=== PATIENT | female | born 1965 | race Caucasian/White ===

== ENCOUNTER 2025-06-15 11:45 | Emergency (ER) | payer MEDICAID, SELFPAY ==
[2025-06-15 12:06] VITALS: BP 178/90; PULSE 107; RESP 18; TEMP 36.6; O2SAT 96; BMI 25.8
--- NOTE | 2025-06-15 13:13 | CT_ITS ---
WS: [id number] CT ABDOMEN PELVIS TECHNIQUE: Contrast-enhanced CT of the abdomen and pelvis with coronal and sagittal reformatted images. CLINICAL INFORMATION: abscess COMPARISON: None. DLP: 780.[address] scans at [facility] use at least one of these dose optimization techniques: automated exposure control; mA and/or kV adjustment per patient size (includes targeted exams where dose is matched to clinical indication); or iterative reconstruction. FINDINGS: Soft tissue induration and inflammatory stranding in the mons pubis eccentric to the LEFT extending into the LEFT labia and perineal soft tissues eccentric to the LEFT. A few tiny foci of subcutaneous air. No evidence of drainable abscess or focal fluid collection visualized. Associated skin thickening. Anal sphincter appears normal in appearance. Few reactive inguinal lymph nodes. Hepatomegaly. Fatty liver. Cholecystectomy clips. Normal portal vein and splenic vein. Fatty atrophy of the pancreas. Tiny splenule. Diffuse gastric rugal thickening in the stomach compatible with gastritis associated duodenitis. Food products in the stomach. Lung bases are well aerated. Adrenal glands are normal. Normal renal parenchymal enhancement. No hydronephrosis. Celiac and SMA are patent. Tiny fat-containing umbilical hernia. Urine distended bladder. Sigmoid diverticulosis. No evidence of acute diverticulitis. Benign-appearing calcification in the LEFT inferior adnexa. CT/CT abdomen pelvis w con* [id number] IMPRESSION: 1. No evidence of drainable abscess or fluid collection. 2. Diffuse induration with soft tissue edema involving the mons pubis eccentri c to the LEFT extending into the LEFT perineum and labia soft tissues. This ext ends to the mid perineum eccentric to the LEFT with skin thickening. A few tiny foci of subcutaneous air. 3. A few reactive inguinal lymph nodes. 4. Atrophic uterus 5. Hepatomegaly with fatty liver. 6. Prior cholecystectomy. 7. Evidence of gastritis and duodenitis. 8. No other acute findings.
--- NOTE | 2025-06-15 13:14 | ED_ITS ---
HPI - Skin/Abscess/Foreign Bdy 2 General: Chief complaint: Skin/Abscess/Foreign Body Stated complaint: lt thigh lump Time Seen by Provider: 06/15/25 13:10 Source: patient Mode of arrival: ambulatory Limitations: no limitations History of Present Illness: 60-year-old female states she had notice d to abscess to her left buttocks that since expanded into her left groin and labia. States she has had some drainage she has pain she denies any fevers denies any worsening provider states this was going on for little over a week. Associated symptoms: Deny chills, fever(s), nausea or vomiting Related Data Home Medications ?Medication ?Instructions ?Recorded ?Confirmed ibuprofen 200 mg tablet 200 mg PO Q6H PRN Pain 06/1506/15/25 omeprazole magnesium 20 mg 20 mg PO QAM 06/15/2506/15 tablet,delayed release (Prilosec OTC) Allergies Allergy/AdvReac Type Severity Reaction Status Date / Time No Known Allergies Allergy Verified 06/15/25 12:13 Review of Systems 2 Const: Denies: fever(s), chills, body aches or change in appetite Eyes: Denies: blurry vision or eye discomfort ENMT: Denies: throat pain or dental pain Card: Denies: chest pain Resp: Denies: dyspnea GI: Denies: abdominal pain, nausea, vomiting or diarrhea Musc: Denies: neck pain or back pain Skin/Breast: Denies: rash Neuro: Denies: headache(s) PFSH ED 2 PFSH: Medical History (Updated 06/15/25 @ 16:12 by Hermes Calloway MD) Restless legs syndrome Tobacco abuse Hypertension Social History (Updated 06/15/25 @ 15:11 by Xavier George MD) Smoking and tobacco/nicotine status: current every day tobacco/nicotine user cigarettes Packs smoked per day: 1 Alcohol intake: current Alcohol intake frequency: holidays/special occasions only Substance/Drug Use: never Additional social history: Not working wants full code as discussed with patient and her significant other Ed Viral on 06/15/2025 by Xavier George MD Household members: significant other Physical Exam 2 Const: COMMON NORMALS: no acute distress, patient oriented x3 and healthy appearing HENMT: COMMON NORMALS: normocephalic and atraumatic HEAD & SCALP: n ormocephalic and atraumatic Eye: COMMON NORMALS: conjunctivae normal CONJUNCTIVA: Yes conjunctivae normal Neck/C-Spine: COMMON NORMALS: full ROM Chest: COMMONS NORMALS: normal inspection of the chest Resp: COMMON NORMALS: normal respiratory effort Cardio: COMMON NORMALS: regular rate RATE: regular rate GI: COMMON NORMALS: Normal to inspection, nondistended, normoactive bowel sounds present, Soft to palpation, non-tender and no masses PALPATION: Yes Soft to palpation : OTHER: Abscess appearing to left perineum going to left labia with cellulitis very tender to touch Extremity: COMMON NORMALS: normal to inspection and full ROM Neuro: COMMON NORMALS: patient oriented x3, moves all extremities and no focal motor deficits Psych: COMMON NORMALS: mental status grossly normal, Normal thought process present and cooperative THOUGHT PROCESS: Normal thought process present Skin: COMMON NORMALS: no rashes or lesions noted and no wounds GENERAL SKIN EXAM: no rashes or lesions noted Course 2 Vital Signs: Vital signs: Vital Signs Temperature 97.8 F 06/15/25 12:06 Pulse Rate 107 H 06/15/25 12:06 Respiratory Rate 18 06/15/25 14:04 Blood Pressure 178/90 06/15/25 12:06 Pulse Oximetry 96 06/15/25 14:04 Oxygen Delivery Me thod Room Air 06/15/25 12:06 MDM - Skin/Abscess/Foreign Bdy Medicial Decision Making Patient presents for cellulitis patient was seen by her surgeon Dr. 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 ER for higher level care. Medical Records I reviewed the patient's medical records. Lab Data I reviewed the patient's lab results. 06/15/25 13:29 06/15/25 13:29 Radiology Impressions Abdomen/Pelvis CT 06/15/25 13:13 IMPRESSION: 1. No evidence of drainable abscess or fluid collection. 2. Diffuse induration with soft tissue edema involving the mons pubis eccentric to the LEFT extending into the LEFT perineum and labia soft tissues. This extends to the mid perineum eccentric to the LEFT with skin thickening. A few tiny foci of subcutaneous air. 3. A few reactive inguinal lymph nodes. 4. Atrophic uterus 5. Hepatomegaly with fatty liver. 6. Prior cholecystectomy. 7. Evidence of gastritis and duodenitis. 8. No other acute findings. Laboratory Results WBC 18.86 10^3/uL (3.29-11.43) H 06/15/25 13:29 RBC 4.97 10^6/uL (3.85-5.65) 06/15/25 13:29 Hgb 15.20 g/dL (11.27-16.99) 06/15/25 13:29 Hct 44.2 % (36-47) 06/15/25 13:29 MCV 88.9 fl (85-98) 06/15/25 13:29 MCH 30.6 pg (27-33) 06/15/25 13:29 MCHC 34.4 g/dL (30-55) 06/15/25 13:29 RDW 13.2 % (12.1-15.1) 06/15/25 13:29 Plt Count 234 10^3/cmm (157-399) 06/15/25 13:29 MPV 9.9 fL (7.4-10.4) 06/15/25 13:29 Neut % (Auto) 81.0 % 06/15/25 13:29 Lymph % (Auto) 6.8 % 06/15/25 13:29 M[place]urt[place] % (Auto) 7.1 % 06/15/25 13:29 Eos % (Auto) 0.6 % 06/15/25 13:29 Baso % (Auto) 0.7 % 06/15/25 13:29 Neut # (Auto) 15.27 10^3/uL (1.8-7.7) H 06/15/25 13:29 Lymph # (Auto) 1.3 10^3/uL (0.8-4.8) 06/15/25 13:29 [place]urt[place] # (Auto) 1.3 10^3/uL (0.2-0.9) H 06/15/25 13:29 Eos # (Auto) 0.1 10^3/uL (0.0-0.8) 06/15/25 13:29 Baso # (Auto) 0.1 10^3/uL (0.0-0.1) 06/15/25 13:29 Nucleated RBC % (auto) 0 % 06/15/25 13:29 Nucleated RBCs # 0.0 /100WBC 06/15/25 13:29 Sodium 129 mmol/L (136-145) L 06/15/25 13:29 Potassium 3.8 mmol/L (3.5-5.1) 06/15/25 13:29 Chloride 92 mmol/L (98-107) L 06/15/25 13:29 Carbon Dioxide 18 mmol/L (22-29) L 06/15/25 13:29 Anion Gap 22.8 (5-19) H 06/15/25 13:29 BUN 18 mg/dL (6-20) 06/15/25 13:29 Creatinine 0.9 mg/dL (0.5-0.9) 06/15/25 13:29 GFR Calculation 64.3 mL/min (90-130) L 06/15/25 13:29 Glucose 1041 mg/dL (65-115) H* 06/15/25 13:29 Calculated Osmolality 322 mOsm/kg (285-295) H 06/15/25 13:29 Lactic Acid 2.0 mmol/L (0.5-2.2) 06/15/25 13:29 Calcium 9.9 mg/dL (8.5-10.5) 06/15/25 13:29 Total Bilirubin 0.6 mg/dL (0.15-1.2) 06/15/25 13:29 AST 15 U/L (0-32) 06/15/25 13:29 ALT 24 U/L (0-33) 06/15/25 13:29 Alkaline Phosphatase 362 U/L (35-105) H 06/15/25 13:29 Total Protein 7.6 g/dL (6.6-8.7) 06/15/25 13:29 Albumin 3.4 g/dL (3.5-5.2) L 06/15/25 13:29 Globulin 4.2 g/dL (1.3-4.6) 06/15/25 13:29 All radiology interpretation(s) finalized by discharge Discharge Plan Discharge Patient Disposition: Xfer Short-Term Hosp Clinical Impression: Cellulitis, Hyperglycemia Condition: Stable Referrals: Marcelina Mcfadden FNP [Primary Care Provider, Family Practice] Print Language: Ugandan Coding Level of Care Code 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
[2025-06-15] MEDS: iohexol 350 mg/mL 500 mL Btl (per mL) IV (13:45)
[2025-06-15] MEDS: ondansetron 2 mg/ML SDV 2 mL 4 MG IVP (14:02)
[2025-06-15 14:04] VITALS: RESP 18; O2SAT 96
[2025-06-15] MEDS: morphine 4 mg/mL SDV 1 mL IVP (14:04)
[2025-06-15 14:05] LABS: Hematocrit 44.2 % (36-47); Hemoglobin 15.20 g/dL (11.27-16.99); Mean Corpuscular HGB Conc 34.4 g/dL (30-55); Mean Corpuscular Hemoglobin 30.6 pg (27-33); Mean Corpuscular Volume 88.9 fl (85-98); Nucleated Red Blood Cells % 0 %; Platelet Count 234 10^3/cmm (157-399); Red Blood Count 4.97 10^6/uL (3.85-5.65); White Blood Count 18.86 10^3/uL (3.29-11.43)
[2025-06-15 14:26] LABS: Alanine Aminotransferase 24 U/L (0-33); Albumin Level 3.4 g/dL (3.5-5.2); Alkaline Phosphatase 362 U/L (35-105); Anion Gap 22.8 (5-19); Aspartate Amino Transferase 15 U/L (0-32); Blood Urea Nitrogen 18 mg/dL (6-20); Calcium 9.9 mg/dL (8.5-10.5); Carbon Dioxide 18 mmol/L (22-29); Chloride 92 mmol/L (98-107); Creatinine Clr Calc Pharmacy 76.8761; Globulin 4.2 g/dL (1.3-4.6); Potassium 3.8 mmol/L (3.5-5.1); Sodium 129 mmol/L (136-145); Total Protein 7.6 g/dL (6.6-8.7)
[2025-06-15 14:36] LABS: Osmolality Calculated 322 mOsm/kg (285-295)
[2025-06-15 14:38] LABS: Glucose 1041 mg/dL (65-115)
[2025-06-15] MEDS: piperacillin-tazobactam 3.375 GM in sodium chloride 0.9% (plus) 50 ML IV (14:42)
--- NOTE | 2025-06-15 15:03 | P.CONIM_ITS ---
Providers/Reason For Consult 2 Consulting Physician/Specialty*: General Surgery Reason for Consult*: Evaluation of perineal abscess. Primary Care Provider: RICARDO Guevara History of Present Illness History of Present Illness Fadumo Jimenez is a 60 year old female with history of diabetes who presents to the hospital with a 1 week course of swelling induration and pain in the left labia and left perineum. According to the patient she started with a possible boil in the left Carlitos Noom that rapidly extended into the left labia and lower abdominal wall left to the level of the lower abdomen. The boil spontaneously drained but she has noticed significant swelling and pain and therefore decided to come to the ER. In the emergency room a CT scan was done that showed evidence of no drainable fluid collections but extensive tissue swelling in the left labia left lower abdominal wall and left perineum with some small speckles of air. Patient was being admitted to the hospitalist service for antibiotics for cellulitis I was consulted for evaluation for possible need of surgical intervention. Review of Systems 2 Narrative: 10 point review of systems done negative otherwise noted in HPI Medications/Allergies Home Medications ?Medication ?Instructions ?Recorded ?Confirmed ?Last Taken ?Type ibuprofen 200 mg tablet 200 mg PO Q6H PRN Pain 06/1506/15/25 Unknown History omeprazole magnesium 20 mg 20 mg PO QAM 06/15/2506/1506/15/25 History tablet,delayed release (Prilosec OTC) Allergies Allergy/AdvReac Type Severity Reaction Status Date / Time No Known Allergies Allergy Verified 06/15/25 12:13 Current Medications Generic Name Dose Route Start Last Admin Trade Name Freq PRN Reason Stop Dose Admin Sodium Chloride 1,000 mls @ 999 mls/hr 06/15/25 14:12 06/15/25 14:43 Sodium Chloride 0.9% IV 06/15/25 15:12 999 mls/hr .Q1H1M ONE Administration PFSH Acute 2 PFSH: Social History Smoking and tobacco/nicotine status: current every day tobacco/nicotine user cigarettes Packs smoked per day: 1 Alcohol intake: current Alcohol intake frequency: holidays/special occasions only Substance/Drug Use: never Additional social history: Not working wants full code as discussed with patient and her significant other Ed Viral on 06/15/2025 by Xavier George MD Household members: significant other Vitals/I&O/Wt Last Vital Signs Temp 97.8 F 06/15/25 12:06 Pulse 107 H 06/15/25 12:06 Resp 18 06/15/25 14:04 BP 178/90 06/15/25 12:06 Pulse Ox 96 06/15/25 14:04 O2 Del Method Room Air 06/15/25 12:06 Weight last 48 hrs Weight 175 lb Physical Exam 2 Narrative: On the examination of the lower abdomen perineum and left labia there is significant swelling affecting the left lower abdomen from the level of the left lower abdominal pannus to the pubis and infiltrating all the left labia tracking down to the perineum. There is erythema at the level of the lower abdomen and once it gets into the pubis on the left labial region there is some mottling of the skin with some superficial necrotic blisters noted. At the level of the perineum there is a 2 cm wound with necrotic material and exudate. The lower abdomen is extremely tender the area on top of the left labia and perineum has decreased tenderness and sensation. 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 Patient presents to the emergency department with perineal left labial and left lower abdominal wall infection. She has a elevated white count of 18.8 has a sodium of 129 and a heart rate of 107. No fever during this admission. Her hemoglobin level is normal the glucose is 1000. 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 Patient most likely will require extensive debridement of the perineum, labia and lower abdominal wall. I cannot offer surgical intervention in our facility as patient most likely will require extensive debridement and possible coverage of the lower abdominal wall and left labia. In this setting I will recommend transfer to higher level of care for multidisciplinary team evaluation as patient most likely will require assistance by general surgery, [facility] and plastic surgery during hospital stay as well as critical care availability. Patient is currently is stable there is no contraindications for transfer. The case was discussed with medical team and they agree with assessment. I have discussed with the patient informed her of the findings. I have also informed the patient of the findings and possible prognosis, she agrees with the plan. We should start patient of broad-spectrum antibiotics, start IV fluids and intensive glucose management. All other care per primary team PDMP PDMP Reviewed: Not Reviewed Coding Level of Care Code Acute Code for [facility] Fwd Diagnoses Catalina disease of vagina and vulva N76.82
--- NOTE | 2025-06-15 15:06 | PM.CONSULT ---
Providers/Reason For Consult Consulting Physician/Specialty*: Xavier George MD hospitalist Reason for Consult*: Cellulitis Requesting Physician: Hermes Calloway MD Primary Care Provider: RICARDO Guevara History of Present Illness History of Present Illness Fadumo Jimenez is a 60 year old female comes in with 1 week of infection left groin. She states it started around the anus then moved anteriorly up the left labia and now she has tenderness in the suprapubic mons area. She has not measured her temperature but has a fever blister so subjectively think she has had a fever. She is companied by her significant other at [employer] Patient denies injury to this area or shaving injury or ingrown hair. She denies past skin infection or history of MRSA. She has not had diabetes. She states she does not follow closely with physicians and her blood pressure has been high i.e. 200s systolic chronically but she does not treat it because of the cost of medication Tobacco is 1 pack/day alcohol is rare i.e. she had 2 beers on Super Bowl as the last time no drug use. 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 States her significant other does most of the cooking Allergies NKDA Meds omeprazole and ibuprofen Patient wants full CODE STATUS Past surgical history gallbladder was removed in her age 20s appendectomy age 17 Review of Systems Narrative: General does not check blood sugars but did know she had diabetes weight up and down 5 pounds depending on how much she eats Cardiovascular no chest pain positive for palpitation no edema Respiratory no shortness of breath cough wheezing GI no nausea vomiting diarrhea constipation no dysuria hematuria. Last UTI 30 years ago [employer] no vaginal bleeding or discharge since menopause at age 47 Medications/Allergies Home Medications ?Medication ?Instructions ?Recorded ?Confirmed ?Last Taken ?Type ibuprofen 200 mg tablet 200 mg PO Q6H PRN Pain 06/15/25 06/15/25 Unknown History omeprazole magnesium 20 mg 20 mg PO QAM 06/15/25 06/15/25 06/15/25 History tablet,delayed release (Prilosec OTC) Allergies Allergy/AdvReac Type Severity Reaction Status Date / Time No Known Allergies Allergy Verified 06/15/25 12:13 Current Medications Generic Name Dose Route Start Last Admin Trade Name Freq PRN Reason Stop Dose Admin Sodium Chloride 1,000 mls @ 999 mls/hr 06/15/25 14:12 06/15/25 14:43 Sodium Chloride 0.9% IV 06/15/25 15:12 999 mls/hr .Q1H1M ONE Administration PFSH Acute PFSH: Medical History (Updated 06/15/25 @ 15:15 by Xavier George MD) Restless legs syndrome Tobacco abuse Hypertension Social History (Updated 06/15/25 @ 15:11 by Xavier George MD) Smoking and tobacco/nicotine status: current every day tobacco/nicotine user cigarettes Packs smoked per day: 1 Alcohol intake: current Alcohol intake frequency: holidays/special occasions only Substance/Drug Use: never Additional social history: Not working wants full code as discussed with patient and her significant other Ed Viral on 06/15/2025 by Xavier George MD Household members: significant other Vitals/I&O/Wt Last Vital Signs Temp 97.8 F 06/15/25 12:06 Pulse 107 H 06/15/25 12:06 Resp 18 06/15/25 14:04 BP 178/90 06/15/25 12:06 Pulse Ox 96 06/15/25 14:04 O2 Del Method Room Air 06/15/25 12:06 Weight last 48 hrs Weight 79.379 kg Physical Exam Narrative: General well-developed well-nourished female in no acute cardiopulmonary distress CV regular rate and rhythm Lungs clear to auscultation bilaterally Abdomen positive bowel tones soft nontender she does have suprapubic tenderness and discoloration with some skin blisters in the suprapubic and left labia. Left labia with large slit in the labia evidence of spontaneous abscess drained and there is a skin tag that it is quarter inch thick and inch and a half long which looks like skin and tissue that sloughed from this abscess drainage. 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 Navarro did a stat consult on patient and suspects early Salvador's gangrene and recommends transfer patient to a higher level of care with [employer] surgery and plastics. He thinks extensive debridement will be likely needed 2. Diabetes: Blood sugar 1041 and previously undiagnosed diabetes. Patient was told that she has diabetes and will need to be treated 3. Hypertension: Patient with blood pressure running chronically systolics as high as 200. She is counseled that this cause vascular disease and left ventricular hypertrophy and eventually heart failure and heart attack. She is counseled that she will need to treat this and she voiced understanding but just needed medications it is not too expensive 4. Tobacco abuse: Will need additional counseling for smoking cessation 5. Restless legs syndrome: Patient has been on ropinirole in the past which was affordable but not on it currently. She states 3 hours of restless legs daily could be anytime of the day. I discussed low-dose ropinirole as well as gabapentin for restless legs. Plan: Patient is transferring to a higher level of care Case was discussed with Dr. Naavrro as well as Dr. Calloway PDMP PDMP Reviewed: Not Reviewed Coding Level of Care Code 88860 Diagnoses Salvador disease of vagina and vulva N76.82 Diabetes E11.9 Hypertension I10 Tobacco abuse Z72.0 Restless legs syndrome G25.81 Time Spent (min) 55
[2025-06-15 15:27] LABS: Lactic Sepsis W/Reflex 2.0 mmol/L (0.5-2.2)
[2025-06-15 15:42] VITALS: BP 172/97; PULSE 96; O2SAT 93
[2025-06-15] MEDS: insulin regular-human 100 units/1 mL 12 UNIT IVP (15:43)
[2025-06-15 16:42] VITALS: BP 181/92; PULSE 105; O2SAT 94
[2025-06-15 17:12] VITALS: BP 178/110; PULSE 107; O2SAT 92
[2025-06-15] MEDS: potassium phosphate (mEq K) 40 MEQ in sodium chloride 0.9% (100 ml) 100 ML 27.25 MEQ IV (17:40)
== END 2025-06-15 17:39 | disposition short-term general hospital (02) ==
PROVIDERS: Emergency Provider Emergency Medicine; PCP Nurse Practitioner
DX: L03.317 Cellulitis of buttock (principal); F17.210 Nicotine dependence, cigarettes, uncomplicated; I10 Essential (primary) hypertension; R73.9 Hyperglycemia, unspecified
CPT/HCPCS: 36415; 36416; 74177; 80053; 82962; 83605; 85025; 87040; 96365; 96367; 96375; 99285; J1815; J2270; J2405; J2543; J3373; J3490; J7030; J7050; J9999

== ENCOUNTER → 2025-08-09 11:42 | Outpatient (BNVA) | payer MEDICAID, SELFPAY | PROVIDERS: PCP Family Medicine; Visit Provider Family Medicine | DX: E11.9 Type 2 diabetes mellitus without complications (principal); E03.9 Hypothyroidism, unspecified | CPT/HCPCS: 80053; 80061; 82043; 83036; 84439; 84443; 85025 ==

== ENCOUNTER 2025-09-13 14:36 | Emergency (ER) | payer MEDICAID, SELFPAY ==
[2025-09-13 14:38] VITALS: BP 128/73; PULSE 86; RESP 18; TEMP 36.7; O2SAT 97
[2025-09-13 15:35] LABS: Hematocrit 45.0 % (36-47); Hemoglobin 14.80 g/dL (11.27-16.99); Mean Corpuscular HGB Conc 32.9 g/dL (30-55); Mean Corpuscular Hemoglobin 28.4 pg (27-33); Mean Corpuscular Volume 86.4 fl (85-98); Nucleated Red Blood Cells % 0 %; Platelet Count 236 10^3/cmm (157-399); Red Blood Count 5.21 10^6/uL (3.85-5.65); White Blood Count 12.62 10^3/uL (3.29-11.43)
[2025-09-13 15:56] LABS: Alanine Aminotransferase 24 U/L (0-33); Albumin Level 4.5 g/dL (3.5-5.2); Alkaline Phosphatase 142 U/L (35-105); Anion Gap 18.8 (5-19); Aspartate Amino Transferase 27 U/L (0-32); Blood Urea Nitrogen 14 mg/dL (6-20); Calcium 10.0 mg/dL (8.5-10.5); Carbon Dioxide 24 mmol/L (22-29); Chloride 100 mmol/L (98-107); Creatinine Clr Calc Pharmacy 84.2900; Globulin 3.8 g/dL (1.3-4.6); Glucose 124 mg/dL (65-115); Lipase 23 U/L (13-60); Osmolality Calculated 290 mOsm/kg (285-295); Potassium 3.8 mmol/L (3.5-5.1); Sodium 139 mmol/L (136-145); Total Protein 8.3 g/dL (6.6-8.7)
[2025-09-13 15:57] LABS: Lactic Sepsis W/Reflex 1.7 mmol/L (0.5-2.2)
--- OUTSIDE RECORDS SUMMARY | 2025-09-13 16:33 | XMS_ITS | Encounter Summary ---
Author Organization [employer] Address [address] [place] [address] Care Team Providers Care Employee Benefits Coordinator Name Role Phone Unavailable Primary Care Provider Unavailabl e Encounter Details Date Type Department Care Team (Late st Contact Info) Description 06/24/2025 Lab Requisition [facility] [address] [address] [place] [place] [address] Pete Kaplan, DO [address] [place] [address] Social History Tobacco Use Types Packs/Day Years Used Date Smoking Tobacco: Every Day Cigarettes 1 42.3 Started: 05/1983 Passive Smoke Exposure: Current Comments:PT states she at ti mes she feels ready to quit but now she does not have desire to quit. Alcohol Use Standard Drinks/Week Comments Never 0 (1 standard drink = 0.6 oz pur e alcohol) Feeling Safe Answer Date Recorded Do you worry about feeling s afe and happy with the people in your life? No 06/16/2025 Food Insecurity Answer Date Recorded Do you find you are eating l ess than you should because you can t pay for food? No 06/16/2025 Transportation Needs Answer Date Record ed Have you gone without health care because you didn t have a way to get there? 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 No 2024 Housing Stability Answer Date Recorded Do you worry you won t have a steady place to sleep or struggle to pay rent or mortgage? No 06/16/2025 Utility Needs Answer Date Recorded Do you have difficulty payin g for utility costs (electric, water or gas bills)? No 06/16/2025 Medication Needs Answer Date Recorded Have you skipped taking medi cation due to cost or worry you can t afford new medications? No 06/16/2025 Feeling Safe Answer Date Recorded Are you in a relationship wi th someone who hurts you emotionally and/or physically? No 06/16/2025 Food Insecurity Answer Date Recorded Patient needs follow up regardin 06/16/2025 Transportation Needs Answer Date Record ed Patient needs follow up regardin 06/16/2025 Utility Needs Answer Date Recorded Patient needs follow up regardin 06/16/2025 Comments Unknown Sex and Gender Information Value Date Recorded Sex Assigned at Not on file Legal Sex Female 7:29 PM CDT Gender Identity Not on file Sexual Orientation Not on file documented as of this encounter Plan of Treatment Not on file documented as of this encounter Procedures Procedure Name Priority Date/Time Associated Diagnosis Comments T4 FREE Stat 06/24/2025 9:40 AM CDT documented in this encounter Results * (ABNORMAL) T4 FREE (06/24/2025 9:40 AM CDT) T4 FREE 0.64(L) 0.81 - 1.70 ng/dL 06/24/2025 11:33 AM CDT [facility] [employer] [facility] Blood Collection / Unknown 06/24/2025 9:40 AM CDT 06/24/2025 10:39 AM CDT us Pete Kaplan DO CHEMISTRY ORDERABLES Final R esult [facility] CLIA # [id number] [address] [place] [id number] documented in this encounter Visit Diagnoses Not on filedocumented in this encounter
--- OUTSIDE RECORDS SUMMARY | 2025-09-13 16:33 | XMS_ITS | Encounter Summary ---
Author Organization [employer] Address [address] [place] [address] Care Team Providers Care Telegraphic Typewriter Installer Name Role Phone Unavailable Primary Care Provider Unavailabl e Encounter Details Date Type Department Care Team (Late st Contact Info) Description 07/07/2025 Lab Requisition [facility] Laboratory Services [address] 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 No 2024 Housing Stability Answer [...] Procedure Name Priority Date/Time Associated Diagnosis Comments CBC WITH DIFFERENTIAL Routine 07/07/2025 3:35 AM CDT COMPREHENSIVE METABOLIC PANEL Routine 07/07/2025 3:35 AM CDT documented in this encounter Results * (ABNORMAL) CBC WITH DIFFERENTIAL (07/07/2025 3:35 AM CDT) WBC 9.6 4.8 - 10.8 K/uL 07/07/2025 7:00 AM CDT [facility] RBC 4.31 4.20 - 5.40 M/uL 07/07/2025 7:00 AM CDT [facility] HEMOGLOBIN 12.7 12.0 - 16.0 g/dL 07/07/2025 7:00 AM CDT [facility] HEMATOCRIT 39.5 36.0 - 46.0 % 07/07/2025 7:00 AM CDT [facility] MCV 91.6 84.0 - 103.0 fL 07/07/2025 7:00 AM CDT [facility] MCH 29.5 27.0 - 34.0 pg 07/07/2025 7:00 AM CDT [facility] MCHC 32.2 30.0 - 35.0 g/dL 07/07/2025 7:00 AM CDT [facility] PLATELETS 336 140 - 440 K/uL 07/07/2025 7:00 AM [facility] AIM [facility] MPV 9.3 8.9 - 12.8 fL 07/07/2025 7:00 AM [facility] RDW 13.7 11.0 - 14.5 % 07/07/2025 7:00 AM [facility] RDW-STDEV 46.0 37.0 - 54.0 fL 07/07/2025 7:00 AM [facility] NEUTROPHILS 42 42 - 75 % 07/07/2025 7:00 AM [facility] AIM [facility] LYMPHOCYTES 37 24 - 44 % 07/07/2025 7:00 AM [facility] AIM [facility] MONOCYTES 9 2 - 10 % 07/07/2025 7:00 AM [facility] AIM [facility] EOSINOPHILS 10(H) 0 - 7 % 07/07/2025 7:00 AM [facility] BASOPHILS 1 0 - 1 % 07/07/2025 7:00 AM [facility] IMMATURE GRANULOCYTES 1 0 - 2 % 07/07/2025 7:00 AM [facility] NEUTROPHIL ABSOLUTE 4.01 2.00 - 8.00 K/uL 07/07/2025 7:00 AM [facility] LYMPHOCYTE ABSOLUTE 3.52 1.20 - 4.00 K/uL 07/07/2025 7:00 AM [facility] MONOCYTE ABSOLUTE 0.86(H) 0.10 - 0.60 K/uL 07/07/2025 7:00 AM [facility] EOSINOPHIL ABSOLUTE 0.95(H) 0.00 - 0.70 K/uL 07/07/2025 7:00 AM [facility] BASOPHILS ABSOLUTE 0.11 0.00 - 0.20 K/uL 07/07/2025 7:00 AM [facility] IMMATURE GRANULOCYTES ABSOLUTE 0.13(H) 0.00 - 0.10 K/uL 07/07/2025 7:00 AM [facility] SMEAR REVIEWED: NA - Not Applicable 07/07/2025 7:00 AM CDT [facility] Blood Collection / Unknown 07/07/2025 3:35 AM CDT 07/07/2025 6:54 AM CDT Pete Kaplan DO HEMATOLOGY ORDERABLES Final Result [facility] CLIA # [id number] [facility] [address] [place] [address] * (ABNORMAL) COMPREHENSIVE METABOLIC PANEL (07/07/2025 3:35 AM CDT) SODIUM 138 136 - 145 mmol/L 07/07/2025 7:41 AM T [facility] POTASSIUM 4.3 3.5 - 5.1 mmol/L 07/07/2025 7:41 AM [facility] CHLORIDE 103 98 - 107 mmol/L 07/07/2025 7:41 AM T [facility] CO2 21(L) 22 - 29 mmol/L 07/07/2025 7:41 AM [facility] CALCIUM 9.7 8.6 - 10.0 mg/dL 07/07/2025 7:41 AM [facility] BUN 20 6 - 20 mg/dL 07/07/2025 7:41 AM [facility] CREATININE 0.76 0.51 - 0.95 mg/dL 07/07/2025 7:41 AM T [facility] GLUCOSE 129(H) 74 - 99 mg/dL 07/07/2025 7:41 AM T [facility] TOTAL PROTEIN 7.4 6.4 - 8.3 g/dL 07/07/2025 7:41 AM [facility] ALBUMIN 3.4(L) 3.5 - 5.2 g/dL 07/07/2025 7:41 AM [facility] BILIRUBIN TOTAL <0.2 0.0 - 1.0 mg/dL 07/07/2025 7:41 AM T [facility] ALKALINE PHOSPHATASE 138(H) 35 - 104 U/L 07/07/2025 7:41 AM [facility] AST 27 10 - 35 U/L 07/07/2025 7:41 AM T [facility] ALT 14 <=35 U/L 07/07/2025 7:41 AM T [facility] GFR >60 >=60 mL/min/1.7 3 sq meter 07/07/2025 7:41 AM T [facility] Comment:eGFR calculated with 2020 CKD-EPI equation. Vegetarian diet, extremely high or low muscle mass, and may affect results. Cystatin C with Glomerular Filtration Rate is a suitable alternative for these patients. ANION GAP 14 9 - 20 mmol/L 07/07/2025 7:41 AM [facility] Blood Collection / Unknown 07/07/2025 3:35 AM CDT 07/07/2025 6:54 AM CDT us Pete Kaplan DO CHEMISTRY ORDERABLES Final R esult [facility] CLIA # [id number] [address] [place] [address] [id number] documented in this encounter Visit Diagnoses Not on filedocumented in this encounter
--- OUTSIDE RECORDS SUMMARY | 2025-09-13 16:33 | XMS_ITS | Encounter Summary ---
Author Organization [employer] Address [address] [place] [address] Care Team Providers Care Database Consultant Name Role Phone Unavailable Primary Care Provider Unavailabl e Encounter Details Date Type Department Care Team (Late st Contact Info) Description 07/25/2025 Lab Requisition [facility] Laboratory Services [address] 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 No 2024 Housing Stability Answer [...] Associated Diagnosis Comments CBC WITH DIFFERENTIAL Routine 07/25/2025 3:50 AM CDT SEDIMENTATION RATE Routine 07/25/2025 3: 50 AM CDT C-REACTIVE PROTEIN Routine 07/25/2025 3: 50 AM CDT COMPREHENSIVE METABOLIC PANEL Routine 07/25/2025 3:50 AM CDT documented in this encounter Results * (ABNORMAL) SEDIMENTATION RATE (07/25/2025 3:50 AM CDT) ESR (SEDIMENTATION RATE) 39(H) 0 - 20 mm/Hr 07/25/2025 7:03 AM CDT [facility] Blood Collection / Unknown 07/25/2025 3:50 AM CDT 07/25/2025 6:34 AM CDT us La Kaufman MD HEMATOLOGY ORDERABLES Helene feldman Result [facility] CLIA # [id number] [address] [address] * (ABNORMAL) C-REACTIVE PROTEIN (07/25/2025 3:50 AM CDT) Pathologist [facility] CRP 5.8(H) 0.0 - 5.0 mg/L 07/25/2025 7:12 AM CDT [facility] Blood Collection / Unknown 07/25/2025 3:50 AM CDT 07/25/2025 6:34 AM CDT La Kaufman MD CHEMISTRY ORDERABLES Final Result [facility] CLIA # [id number] [address] [place] [address] * (ABNORMAL) CBC WITH DIFFERENTIAL (07/25/2025 3:50 AM CDT) Pathologist [facility] WBC 8.7 4.8 - 10.8 K/uL 07/25/2025 6:38 AM CDT [facility] RBC 4.36 4.20 - 5.40 M/uL 07/25/2025 6:38 AM CDT [facility] HEMOGLOBIN 12.7 12.0 - 16.0 g/dL 07/25/2025 6:38 AM CDT [facility] HEMATOCRIT 38.3 36.0 - 46.0 % 07/25/2025 6:38 AM CDT [facility] MCV 87.8 84.0 - 103.0 fL 07/25/2025 6:38 AM CDT [facility] MCH 29.1 27.0 - 34.0 pg 07/25/2025 6:38 AM CDT [facility] MCHC 33.2 30.0 - 35.0 g/dL 07/25/2025 6:38 AM CDT [facility] PLATELETS 251 140 - 440 K/uL 07/25/2025 6:38 AM CDT [facility] MPV 9.7 8.9 - 12.8 fL 07/25/2025 6:38 AM CDT [facility] RDW 13.0 11.0 - 14.5 % 07/25/2025 6:38 AM T [facility] RDW-STDEV 41.8 37.0 - 54.0 fL 07/25/2025 6:38 AM T [facility] NEUTROPHILS 38(L) 42 - 75 % 07/25/2025 6:38 AM T [facility] LYMPHOCYTES 45(H) 24 - 44 % 07/25/2025 6:38 AM T [facility] MONOCYTES 8 2 - 10 % 07/25/2025 6:38 AM [facility] EOSINOPHILS 8(H) 0 - 7 % 07/25/2025 6:38 AM T [facility] BASOPHILS 1 0 - 1 % 07/25/2025 6:38 AM [facility] IMMATURE GRANULOCYTES 1 0 - 2 % 07/25/2025 6:38 AM [facility] NEUTROPHIL ABSOLUTE 3.31 2.00 - 8.00 K/uL 07/25/2025 6:38 AM T [facility] LYMPHOCYTE ABSOLUTE 3.92 1.20 - 4.00 K/uL 07/25/2025 6:38 AM [facility] MONOCYTE ABSOLUTE 0.68(H) 0.10 - 0.60 K/uL 07/25/2025 6:38 AM [facility] EOSINOPHIL ABSOLUTE 0.65 0.00 - 0.70 K/uL 07/25/2025 6:38 AM [facility] BASOPHILS ABSOLUTE 0.07 0.00 - 0.20 K/uL 07/25/2025 6:38 AM [facility] IMMATURE GRANULOCYTES ABSOLUTE 0.04 0.00 - 0.10 K/uL 07/25/2025 6:38 AM [facility] SMEAR REVIEWED: NA - Not Applicable 07/25/2025 6:38 AM [facility] Blood Collection / Unknown 07/25/2025 3:50 AM CDT 07/25/2025 6:34 AM CDT La Kaufman MD HEMATOLOGY ORDERABLES Helene francia Result [facility] [place] # [id number] [facility] [address] [place] [address] * (ABNORMAL) COMPREHENSIVE METABOLIC PANEL (07/25/2025 3:50 AM CDT) Pathologist [facility] SODIUM 140 136 - 145 mmol/L 07/25/2025 7:16 AM CDT [facility] POTASSIUM 4.2 3.5 - 5.1 mmol/L 07/25/2025 7:16 AM T [facility] CHLORIDE 100 98 - 107 mmol/L 07/25/2025 7:16 AM T [facility] CO2 23 22 - 29 mmol/L 07/25/2025 7:16 AM T [facility] CALCIUM 9.5 8.6 - 10.0 mg/dL 07/25/2025 7:16 AM T [facility] BUN 27(H) 6 - 20 mg/dL 07/25/2025 7:16 AM T [facility] CREATININE 0.83 0.51 - 0.95 mg/dL 07/25/2025 7:16 AM T [facility] GLUCOSE 106(H) 74 - 99 mg/dL 07/25/2025 7:16 AM T [facility] TOTAL PROTEIN 7.1 6.4 - 8.3 g/dL 07/25/2025 7:16 AM T [facility] ALBUMIN 3.7 3.5 - 5.2 g/dL 07/25/2025 7:16 AM [facility] BILIRUBIN TOTAL 0.2 0.0 - 1.0 mg/dL 07/25/2025 7:16 AM T [facility] ALKALINE PHOSPHATASE 88 35 - 104 U/L 07/25/2025 7:16 AM T [facility] AST 27 10 - 35 U/L 07/25/2025 7:16 AM CDT [facility] Comment:Hemolysis present. R esult may be falsely elevated. ALT 22 <=35 U/L 07/25/2025 7:16 AM CDT [facility] GFR >60 >=60 mL/min/1.7 3 sq meter 07/25/2025 7:16 AM T [facility] Comment:eGFR calculated with 2020 CKD-EPI equation. Vegetarian diet, extremely high or low muscle mass, and may affect results. Cystatin C with Glomerular Filtration Rate is a suitable alternative for these patients. ANION GAP 17 9 - 20 mmol/L 07/25/2025 7:16 AM T [facility] Blood Collection / Unknown 07/25/2025 3:50 AM CDT 07/25/2025 6:34 AM CDT La Kaufman MD CHEMISTRY ORDERABLES Final Result [facility] CLIA # [id number] [address] [address] documented in this encounter Visit Diagnoses Not on filedocumented in this encounter
--- OUTSIDE RECORDS SUMMARY | 2025-09-13 16:33 | XMS_ITS | Encounter Summary ---
Author Organization [employer] Address [address] [place] [address] Care Team Providers Care Bean Dumper Name Role Phone Unavailable Primary Care Provider Unavailabl e Encounter Details Date Type Department Care Team (Late st Contact Info) Description 06/24/2025 Lab Requisition [facility] Laboratory Services [address] 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 No 2024 Housing Stability Answer [...] Associated Diagnosis Comments CBC WITH DIFFERENTIAL Routine 06/24/2025 3:39 AM CDT SEDIMENTATION RATE Routine 06/24/2025 3: 39 AM CDT C-REACTIVE PROTEIN Routine 06/24/2025 3: 39 AM CDT CK Routine 06/24/2025 3:39 AM CDT COMPREHENSIVE METABOLIC PANEL Routine 06/24/2025 3:39 AM CDT documented in this encounter Results * (ABNORMAL) SEDIMENTATION RATE (06/24/2025 3:39 AM CDT) ESR (SEDIMENTATION RATE) 90(H) 0 - 20 mm/Hr 06/24/2025 6:59 AM CDT [facility] Blood Collection / Unknown 06/24/2025 3:39 AM CDT 06/24/2025 5:33 AM CDT us Pete Kaplan DO HEMATOLOGY ORDERABLES Final Result [facility] CLIA # [id number] [address] [place] [address] * (ABNORMAL) CBC WITH DIFFERENTIAL (06/24/2025 3:39 AM CDT) [facility] WBC 13.8(H) 4.8 - 10.8 K/uL 06/24/2025 5:50 AM CDT [facility] RBC 3.30(L) 4.20 - 5.40 M/uL 06/24/2025 5:50 AM CDT [facility] HEMOGLOBIN 9.8(L) 12.0 - 16.0 g/dL 06/24/2025 5:50 AM CDT [facility] HEMATOCRIT 29.9(L) 36.0 - 46.0 % 06/24/2025 5:50 AM CDT [facility] MCV 90.6 84.0 - 103.0 fL 06/24/2025 5:50 AM CDT [facility] MCH 29.7 27.0 - 34.0 pg 06/24/2025 5:50 AM CDT [facility] MCHC 32.8 30.0 - 35.0 g/dL 06/24/2025 5:50 AM [facility] 311 140 - 440 K/uL 06/24/2025 5:50 AM [facility] MPV 10.0 8.9 - 12.8 fL 06/24/2025 5:50 AM CDT [facility] RDW 13.7 11.0 - 14.5 % 06/24/2025 5:50 AM CDT [facility] RDW-STDEV 44.6 37.0 - 54.0 fL 06/24/2025 5:50 AM CDT [facility] NEUTROPHILS 58 42 - 75 % 06/24/2025 5:50 AM CDT [facility] LYMPHOCYTES 25 24 - 44 % 06/24/2025 5:50 AM CDT [facility] MONOCYTES 11(H) 2 - 10 % 06/24/2025 5:50 AM CDT [facility] EOSINOPHILS 3 0 - 7 % 06/24/2025 5:50 AM CDT [facility] BASOPHILS 1 0 - 1 % 06/24/2025 5:50 AM CDT [facility] IMMATURE GRANULOCYTES 3(H) 0 - 2 % 06/24/2025 5:50 AM CDT [facility] NEUTROPHIL ABSOLUTE 7.99 2.00 - 8.00 K/uL 06/24/2025 5:50 AM CDT [facility] LYMPHOCYTE ABSOLUTE 3.43 1.20 - 4.00 K/uL 06/24/2025 5:50 AM CDT [facility] MONOCYTE ABSOLUTE 1.52(H) 0.10 - 0.60 K/uL 06/24/2025 5:50 AM CDT [facility] EOSINOPHIL ABSOLUTE 0.37 0.00 - 0.70 K/uL 06/24/2025 5:50 AM CDT [facility] BASOPHILS ABSOLUTE 0.08 0.00 - 0.20 K/uL 06/24/2025 5:50 AM CDT [facility] IMMATURE GRANULOCYTES ABSOLUTE 0.44(H) 0.00 - 0.10 K/uL 06/24/2025 5:50 AM CDT [facility] SMEAR REVIEWED: NA - Not Applicable 06/24/2025 5:50 AM T [facility] Blood Collection / Unknown 06/24/2025 3:39 AM CDT 06/24/2025 5:33 AM CDT Pete Kaplan DO HEMATOLOGY ORDERABLES Final Result [facility] CLIA # [id number] [address] [place] [id number] * (ABNORMAL) C-REACTIVE PROTEIN (06/24/2025 3:39 AM CDT) [facility] CRP 93.0(H) 0.0 - 5.0 mg/L 06/24/2025 6:52 AM CDT [facility] Blood Collection / Unknown 06/24/2025 3:39 AM CDT 06/24/2025 5:33 AM CDT Pete Kaplan DO CHEMISTRY ORDERABLES Final R esult Performing Organization Address City/[facility] [address]/ZIP Co de Phone Number [facility] CLIA # [id number] [address] [address] * CK (06/24/2025 3:39 AM CDT) Pathologist [facility] CK 51 26 - 192 U/L 06/24/2025 6:52 AM CDT [facility] Blood Collection / Unknown 06/24/2025 3:39 AM CDT 06/24/2025 5:33 AM CDT Pete Kaplan DO CHEMISTRY ORDERABLES Final R [facility] Performing Organization Address City/[facility] [address]/[facility] Co de Phone Number [facility] [employer] [facility] CLIA # [id number] [address] [address] * (ABNORMAL) COMPREHENSIVE METABOLIC PANEL (06/24/2025 3:39 AM CDT) SODIUM 136 136 - 145 mmol/L 06/24/2025 6:52 AM CDT [facility] POTASSIUM 3.4(L) 3.5 - 5.1 mmol/L 06/24/2025 6:52 AM CDT [facility] CHLORIDE 105 98 - 107 mmol/L 06/24/2025 6:52 AM CDT [facility] CO2 21(L) 22 - 29 mmol/L 06/24/2025 6:52 AM CDT [facility] CALCIUM 8.0(L) 8.6 - 10.0 mg/dL 06/24/2025 6:52 AM CDT [facility] BUN 14 6 - 20 mg/dL 06/24/2025 6:52 AM [facility] CREATININE 0.67 0.51 - 0.95 mg/dL 06/24/2025 6:52 AM [facility] GLUCOSE 180(H) 74 - 99 mg/dL 06/24/2025 6:52 AM [facility] TOTAL PROTEIN 5.7(L) 6.4 - 8.3 g/dL 06/24/2025 6:52 AM [facility] ALBUMIN 2.6(L) 3.5 - 5.2 g/dL 06/24/2025 6:52 AM [facility] BILIRUBIN TOTAL 0.2 0.0 - 1.0 mg/dL 06/24/2025 6:52 AM [facility] ALKALINE PHOSPHATASE 233(H) 35 - 104 U/L 06/24/2025 6:52 AM [facility] AST 24 10 - 35 U/L 06/24/2025 6:52 AM [facility] ALT 21 <=35 U/L 06/24/2025 6:52 AM [facility] GFR >60 >=60 mL/min/1.7 3 sq meter 06/24/2025 6:52 AM [facility] Comment:eGFR calculated with 2020 CKD-EPI equation. Vegetarian diet, extremely high or low muscle mass, and may affect results. Cystatin C with Glomerular Filtration Rate is a suitable alternative for these patients. ANION GAP 10 9 - 20 mmol/L 06/24/2025 6:52 AM [facility] Blood Collection / Unknown 06/24/2025 3:39 AM CDT 06/24/2025 5:33 AM CDT us Pete Kaplan DO CHEMISTRY ORDERABLES Final R esult [facility] CLIA # [id number] [address] [place] [address] documented in this encounter Visit Diagnoses Not on filedocumented in this encounter
--- OUTSIDE RECORDS SUMMARY | 2025-09-13 16:33 | XMS_ITS | Encounter Summary ---
Author Organization [employer] Address [address] [place] [address] Care Team Providers Care Space Engineer Name Role Phone Unavailable Primary Care Provider Unavailabl e Encounter Details Date Type Department Care Team (Late st Contact Info) Description 07/18/2025 Lab Requisition [facility] Laboratory Services [address] [place] [address] [facility], External Provider [address] [place], [place] [address] Social History Tobacco Use Types Packs/Day Years [...] about transportation for future doctor visits, picking supervisor medication, etc.? No 2024 Housing [...] Associated Diagnosis Comments CBC WITH DIFFERENTIAL Routine 07/18/2025 3:30 AM CDT SEDIMENTATION RATE Routine 07/18/2025 3: 30 AM CDT C-REACTIVE PROTEIN Routine 07/18/2025 3: 30 AM CDT COMPREHENSIVE METABOLIC PANEL Routine 07/18/2025 3:30 AM CDT documented in this encounter Results * (ABNORMAL) SEDIMENTATION RATE (07/18/2025 3:30 AM CDT) [facility] ESR (SEDIMENTATION RATE) 56(H) 0 - 20 mm/Hr 07/18/2025 7:27 AM CDT [facility] Blood Collection / Unknown 07/18/2025 3:30 AM CDT 07/18/2025 7:05 AM CDT us External Provider [facility] HEMATOLOGY ORDERABLES Helene l Result [facility] CLIA # [id number] [address] [place] [address] [place], [place] [id number] * (ABNORMAL) C-REACTIVE PROTEIN (07/18/2025 3:30 AM CDT) [facility] CRP 7.2(H) 0.0 - 5.0 mg/L 07/18/2025 7:49 AM CDT [facility] Blood Collection / Unknown 07/18/2025 3:30 AM CDT 07/18/2025 7:05 AM CDT us External Provider [facility] CHEMISTRY ORDERABLES Final Result [facility] CLIA # [id number] [address] [address] [place] [address] * (ABNORMAL) CBC WITH DIFFERENTIAL (07/18/2025 3:30 AM CDT) WBC 9.7 4.8 - 10.8 K/uL 07/18/2025 7:15 AM CDT [facility] RBC 4.55 4.20 - 5.40 M/uL 07/18/2025 7:15 AM CDT [facility] HEMOGLOBIN 13.1 12.0 - 16.0 g/dL 07/18/2025 7:15 AM CDT [facility] HEMATOCRIT 41.0 36.0 - 46.0 % 07/18/2025 7:15 AM CDT [facility] MCV 90.1 84.0 - 103.0 fL 07/18/2025 7:15 AM CDT [facility] MCH 28.8 27.0 - 34.0 pg 07/18/2025 7:15 AM CDT [facility] MCHC 32.0 30.0 - 35.0 g/dL 07/18/2025 7:15 AM CDT [facility] PLATELETS 275 140 - 440 K/uL 07/18/2025 7:15 AM CDT [facility] MPV 9.5 8.9 - 12.8 fL 07/18/2025 7:15 AM CDT [facility] RDW 13.1 11.0 - 14.5 % 07/18/2025 7:15 AM CDT [facility] RDW-STDEV 43.6 37.0 - 54.0 fL 07/18/2025 7:15 AM CDT [facility] NEUTROPHILS 37(L) 42 - 75 % 07/18/2025 7:15 AM T [facility] LYMPHOCYTES 47(H) 24 - 44 % 07/18/2025 7:15 AM T [facility] MONOCYTES 8 2 - 10 % 07/18/2025 7:15 AM CDT [facility] EOSINOPHILS 7 0 - 7 % 07/18/2025 7:15 AM CDT [facility] BASOPHILS 1 0 - 1 % 07/18/2025 7:15 AM T [facility] IMMATURE GRANULOCYTES 1 0 - 2 % 07/18/2025 7:15 AM CDT [facility] NEUTROPHIL ABSOLUTE 3.60 2.00 - 8.00 K/uL 07/18/2025 7:15 AM [facility] LYMPHOCYTE ABSOLUTE 4.54(H) 1.20 - 4.00 K/uL 07/18/2025 7:15 AM [facility] MONOCYTE ABSOLUTE 0.73(H) 0.10 - 0.60 K/uL 07/[facility] 0.66 0.00 - 0.70 K/uL 07/18/2025 7:15 AM [facility] BASOPHILS ABSOLUTE 0.09 0.00 - 0.20 K/uL 07/18/2025 7:15 AM [facility] IMMATURE GRANULOCYTES ABSOLUTE 0.06 0.00 - 0.10 K/uL 07/18/2025 7:15 AM [facility] SMEAR REVIEWED: NA - Not Applicable 07/18/2025 7:15 AM [facility] Blood Collection / Unknown 07/18/2025 3:30 AM CDT 07/18/2025 7:05 AM CDT us External Provider [facility] HEMATOLOGY ORDERABLES Helene l Result [facility] CLIA # [id number] [address] [place] [address] * (ABNORMAL) COMPREHENSIVE METABOLIC PANEL (07/18/2025 3:30 AM CDT) SODIUM 141 136 - 145 mmol/L 07/18/2025 7:49 AM T [facility] POTASSIUM 4.1 3.5 - 5.1 mmol/L 07/18/2025 7:49 AM T [facility] CHLORIDE 105 98 - 107 mmol/L 07/18/2025 7:49 AM T [facility] CO2 22 22 - 29 mmol/L 07/18/2025 7:49 AM T [facility] CALCIUM 9.7 8.6 - 10.0 mg/dL 07/18/2025 7:49 AM T [facility] BUN 30(H) 6 - 20 mg/dL 07/18/2025 7:49 AM T [facility] CREATININE 0.78 0.51 - 0.95 mg/dL 07/18/2025 7:49 AM T [facility] GLUCOSE 102(H) 74 - 99 mg/dL 07/18/2025 7:49 AM [facility] TOTAL PROTEIN 7.3 6.4 - 8.3 g/dL 07/18/2025 7:49 AM T [facility] ALBUMIN 3.5 3.5 - 5.2 g/dL 07/18/2025 7:49 AM T [facility] BILIRUBIN TOTAL <0.2 0.0 - 1.0 mg/dL 07/18/2025 7:49 AM T [facility] ALKALINE PHOSPHATASE 111(H) 35 - 104 U/L 07/18/2025 7:49 AM T [facility] AST 29 10 - 35 U/L 07/18/2025 7:49 AM T [facility] ALT 24 <=35 U/L 07/18/2025 7:49 AM CDT [facility] GFR >60 >=60 mL/min/1.7 3 sq meter 07/18/2025 7:49 AM T [facility] Comment:eGFR calculated with 2020 CKD-EPI equation. Vegetarian diet, extremely high or low muscle mass, and may affect results. Cystatin C with Glomerular Filtration Rate is a suitable alternative for these patients. ANION GAP 14 9 - 20 mmol/L 07/18/2025 7:49 AM T [facility] Blood Collection / Unknown 07/18/2025 3:30 AM CDT 07/18/2025 7:05 AM CDT External Provider [facility] CHEMISTRY ORDERABLES Final Result [facility] CLIA # [id number] [address] [place] [id number] documented in this encounter Visit Diagnoses Not on filedocumented in this encounter
--- OUTSIDE RECORDS SUMMARY | 2025-09-13 16:33 | XMS_ITS | Encounter Summary ---
Author Organization [employer] Address [address] [place] [address] Care Team Providers Care Spray Crew Name Role Phone Unavailable Primary Care Provider Unavailabl e Encounter Details Date Type Department Care Team (Late st Contact Info) Description 07/04/2025 Lab Requisition [facility] [address] 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 No 2024 Housing Stability Answer [...] Associated Diagnosis Comments CBC WITH DIFFERENTIAL Routine 07/04/2025 4:40 AM CDT SEDIMENTATION RATE Routine 07/04/2025 4: 40 AM CDT C-REACTIVE PROTEIN Routine 07/04/2025 4: 40 AM CDT CK Routine 07/04/2025 4:40 AM CDT COMPREHENSIVE METABOLIC PANEL Routine 07/04/2025 4:40 AM CDT documented in this encounter Results * (ABNORMAL) SEDIMENTATION RATE (07/04/2025 4:40 AM CDT) ESR (SEDIMENTATION RATE) 85(H) 0 - 20 mm/Hr 07/04/2025 7:03 AM CDT [facility] Blood Collection / Unknown 07/04/2025 4:40 AM CDT 07/04/2025 5:46 AM CDT us Pete Kaplan DO HEMATOLOGY ORDERABLES Final Result [facility] CLIA # [id number] [address] [place] [address] [place] [address] * (ABNORMAL) C-REACTIVE PROTEIN (07/04/2025 4:40 AM CDT) Pathologist [facility] CRP 25.5(H) 0.0 - 5.0 mg/L 07/04/2025 7:04 AM CDT [facility] Blood Collection / Unknown 07/04/2025 4:40 AM CDT 07/04/2025 5:46 AM CDT Pete Kaplan DO CHEMISTRY ORDERABLES Final R esult Performing Organization Address City/[facility]/ZIP Co de Phone Number [facility] CLIA # [id number] [address] [address] * (ABNORMAL) CK (07/04/2025 4:40 AM CDT) Pathologist [facility] CK 21(L) 26 - 192 U/L 07/04/2025 7:04 AM CDT [facility] Blood Collection / Unknown 07/04/2025 4:40 AM CDT 07/04/2025 5:46 AM CDT Pete Kaplan DO CHEMISTRY ORDERABLES Final R esult Performing Organization Address City/[facility]/ZIP Co de Phone Number [facility] CLIA # [id number] [address] [address] * (ABNORMAL) CBC WITH DIFFERENTIAL (07/04/2025 4:40 AM CDT) Pathologist [facility] WBC 9.1 4.8 - 10.8 K/uL 07/04/2025 6:20 AM CDT [facility] RBC 4.12(L) 4.20 - 5.40 M/uL 07/04/2025 6:20 AM CDT [facility] HEMOGLOBIN 12.1 12.0 - 16.0 g/dL 07/04/2025 6:20 AM [facility] HEMATOCRIT 37.4 36.0 - 46.0 % 07/04/2025 6:20 AM [facility] MCV 90.8 84.0 - 103.0 fL 07/04/2025 6:20 AM [facility] MCH 29.4 27.0 - 34.0 pg 07/04/2025 6:20 AM [facility] MCHC 32.4 30.0 - 35.0 g/dL 07/04/2025 6:20 AM [facility] PLATELETS 398 140 - 440 K/uL 07/04/2025 6:20 AM [facility] MPV 9.0 8.9 - 12.8 fL 07/04/2025 6:20 AM [facility] RDW 13.8 11.0 - 14.5 % 07/04/2025 6:20 AM [facility] RDW-STDEV 45.2 37.0 - 54.0 fL 07/04/2025 6:20 AM [facility] NEUTROPHILS 48 42 - 75 % 07/04/2025 6:20 AM [facility] LYMPHOCYTES 33 24 - 44 % 07/04/2025 6:20 AM [facility] MONOCYTES 10 2 - 10 % 07/04/2025 6:20 AM [facility] EOSINOPHILS 8(H) 0 - 7 % 07/04/2025 6:20 AM [facility] BASOPHILS 1 0 - 1 % 07/04/2025 6:20 AM [facility] IMMATURE GRANULOCYTES 1 0 - 2 % 07/04/2025 6:20 AM [facility] NEUTROPHIL ABSOLUTE 4.37 2.00 - 8.00 K/uL 07/04/2025 6:20 AM [facility] LYMPHOCYTE ABSOLUTE 2.99 1.20 - 4.00 K/uL 07/04/2025 6:20 AM [facility] MONOCYTE ABSOLUTE 0.86(H) 0.10 - 0.60 K/uL 07/04/2025 6:20 AM CDT [facility] EOSINOPHIL ABSOLUTE 0.68 0.00 - 0.70 K/uL 07/04/2025 6:20 AM CDT [facility] BASOPHILS ABSOLUTE 0.08 0.00 - 0.20 K/uL 07/04/2025 6:20 AM CDT [facility] IMMATURE GRANULOCYTES ABSOLUTE 0.12(H) 0.00 - 0.10 K/uL 07/04/2025 6:20 AM T [facility] SMEAR REVIEWED: NA - Not Applicable 07/04/2025 6:20 AM [facility] Blood Collection / Unknown 07/04/2025 4:40 AM CDT 07/04/2025 5:46 AM CDT us Ptee Kaplan DO HEMATOLOGY ORDERABLES Final Result Performing Organization Address City/State/[facility] Co de Phone Number [facility] CLIA # [id number] [address] [place] [id number] * (ABNORMAL) COMPREHENSIVE METABOLIC PANEL (07/04/2025 4:40 AM CDT) SODIUM 139 136 - 145 mmol/L 07/04/2025 7:04 AM [facility] POTASSIUM 3.9 3.5 - 5.1 mmol/L 07/04/2025 7:04 AM [facility] CHLORIDE 104 98 - 107 mmol/L 07/04/2025 7:04 AM T [facility] CO2 22 22 - 29 mmol/L 07/04/2025 7:04 AM [facility] CALCIUM 9.1 8.6 - 10.0 mg/dL 07/04/2025 7:04 AM [facility] BUN 16 6 - 20 mg/dL 07/04/2025 7:04 AM [facility] CREATININE 0.66 0.51 - 0.95 mg/dL 07/04/2025 7:04 AM [facility] GLUCOSE 124(H) 74 - 99 mg/dL 07/04/2025 7:04 AM [facility] TOTAL PROTEIN 7.1 6.4 - 8.3 g/dL 07/04/2025 7:04 AM [facility] ALBUMIN 3.0(L) 3.5 - 5.2 g/dL 07/04/2025 7:04 AM [facility] BILIRUBIN TOTAL 0.2 0.0 - 1.0 mg/dL 07/04/2025 7:04 AM [facility] ALKALINE PHOSPHATASE 133(H) 35 - 104 U/L 07/04/2025 7:04 AM [facility] AST 26 10 - 35 U/L 07/04/2025 7:04 AM [facility] ALT 11 <=35 U/L 07/04/2025 7:04 AM [facility] GFR >60 >=60 mL/min/1.7 3 sq meter 07/04/2025 7:04 AM [facility] Comment:eGFR calculated with 2020 CKD-EPI equation. Vegetarian diet, extremely high or low muscle mass, and may affect results. Cystatin C with Glomerular Filtration Rate is a suitable alternative for these patients. ANION GAP 13 9 - 20 mmol/L 07/04/2025 7:04 AM [facility] Blood Collection / Unknown 07/04/2025 4:40 AM CDT 07/04/2025 5:46 AM T us Pete Kaplan DO CHEMISTRY ORDERABLES Final R esult [facility] CLIA # [id number] [address] [address] documented in this encounter Visit Diagnoses Not on filedocumented in this encounter
--- OUTSIDE RECORDS SUMMARY | 2025-09-13 16:34 | XMS_ITS | Clinical Summary ---
Author Organization [facility] Address [address] [place] [address] Phone Care Team Providers Care Board Member Name Role Phone Unavailable Primary Care Provider Unavailabl e Allergies No known active allergies Medications omeprazole (PriLOSEC) 20 mg Capsule, Delayed Release(E.C.) Take 20 mg by mouth daily. Active ascorbic acid, vitamin C, (VITAMIN C) 500 mg tablet Take 1 Tablet (500 mg) by mouth daily. 5 Active hydrOXYzine HCL (ATARAX) 25 mg tablet Take 1 Tablet (25 mg) by mouth every 6 hours as needed for Anxiety. 5 Active insulin glargine-yfgn 100 unit/mL pen syringe Inject 35 Units by subcutaneous injection 2 times daily. 5 Active insulin lispro (HumaLOG,ADMEL OG) 100 unit/mL pen syringe Inject 0-20 Units by subcutaneous injection 3 times daily with meals. 5 Active insulin lispro (HumaLOG,ADMEL OG) 100 unit/mL pen syringe Inject 15 Units by subcutaneous injection 3 times daily with meals. 5 Active labetaloL (NORMODYNE) 200 mg tablet Take 1 Tablet (200 mg) by mouth 2 times daily. Active methocarbamoL (ROBAXIN) 500 mg tablet Take 1 Tablet (500 mg) by mouth every 6 hours. 5 Active multivitamin with folic acid 400 mcg Tablet tablet Take 1 Tablet by mouth daily. 5 Active oxyCODONE (ROXICODONE) 10 mg tabletIndicati ons:Salvador disease of vagina and vulva (CMS/HCC) Take 1 Tablet (10 mg) by mouth every 4 hours as needed for Pain. Max Daily Amount: 60 mg Active zinc SULFATE 110 mg (25 mg zinc) Tablet Take 2 Tablets (220 mg) by mouth daily. Active vitamin A 10,000 unit capsule Take 1 Capsule (10,000 Units) by mouth daily. Active gabapentin (NEURONTIN) 600 mg tablet Take 1 Tablet (600 mg) by mouth every 8 hours. Active naloxone (NARCAN) 4 mg/spray [place], Non-Aerosol EMERGENCY USE ONLY: Administer 1 spray (4 mg) in one nostril one time. May repeat in alternating nostrils every 2-3 min until responsive or EMS arrives. Active mupirocin (BACTROBAN) 2 % Ointment Apply to affected area daily for 7 days. 30 Gram 5 08/31/20 25 Active Problems Problem Noted Date Diagnosed Date Type 2 diabetes mellitus wit h hyperglycemia, without long-term current use of insulin 06/20/2025 Polymicrobial bacterial infection 06/20/2025 Other chest pain 06/19/2025 Hypokalemia 06/17/2025 Salvador disease of vagina and vulva 06/15/2025 Type 2 diabetes mellitus wit h skin complication, without long-term current use of insulin 06/15/2025 Encounters Date Type Department Care Team Description 08/24/2025 3:40 PM CDT Office Visit [facility] Infectious Disease[address] [place] [phone] Estrada Irving MD Salvador disease of vagina and vulva (CMS/HCC) (Primary Dx); Type 2 diabetes mellitus with hyperglycemia, without long-term current use of insulin; Polymicrobial bacterial infection; Acne vulgaris 08/23/2025 External Device Data [facility] ABSTRACTION Provider, Abstract 08/23/2025 External Device Data [facility] ABSTRACTION Provider, Abstract 08/09/2025 External Device Data [facility] ABSTRACTION Provider, Abstract 07/25/2025 Lab Requisition [facility] Services [address] [place] [address] La Kaufman MD 07/19/2025 External Device Data [facility] ABSTRACTION Provider, Abstract 07/19/2025 External Device Data [facility] ABSTRACTION Provider, Abstract 07/18/2025 Lab Requisition [facility] Services [address] [place] [address] [facility], External Provider 07/13/2025 External Device Data [facility] ABSTRACTION Provider, Abstract 07/12/2025 External Device Data [facility] ABSTRACTION Provider, Abstract 07/07/2025 Lab Requisition [facility] Services [address] [place] [address] Pete Kaplan, DO 07/04/2025 Lab Requisition [facility] Services [address] [place] [address] Pete Kaplan, DO 06/24/2025 Orders Only [facility] [address] [place] [phone] Provider, Abstract 06/24/2025 Lab Requisition [facility] Services [address] [place] [address] Pete Kaplan, DO 06/24/2025 Telephone [facility] [address] [address] Louann Walters Appointment Notification 06/24/2025 Lab Requisition [facility] [address] [place] [address] Pete Kaplan, DO 06/24/2025 Lab Requisition [facility] [address] [place] [address] [place] [address] Pete Kaplan, DO 06/23/2025 4:40 AM CDT - 06/23/2025 11:59 PM CDT Hospital Encounter [facility] [place] [address] [place] [address] Brooke Maradiaga MD Ambulance, [facility] Discharge Disposition: [facility] 06/23/2025 External Device Data [facility] ABSTRACTION Provider, Abstract 06/23/2025 External Device Data [facility] ABSTRACTION Provider, Abstract 06/23/2025 External Device Data [facility] ABSTRACTION Provider, Abstract 06/23/2025 External Device Data [facility] ABSTRACTION Provider, Abstract 06/22/2025 External Device Data [facility] ABSTRACTION Provider, Abstract 06/21/2025 External Device Data [facility] ABSTRACTION Provider, Abstract 06/21/2025 External Device Data [facility] ABSTRACTION Provider, Abstract 06/15/2025 11:05 PM CDT Anesthesia Event [facility] Operating Room [address] [place] [address] Martinez Diego II, DO 06/15/2025 9:40 PM CDT - 06/15/2025 10:35 PM CDT Surgery [facility] Operating Room [address] [place] [address] Jw Copeland DO PERINEAL INCISION AND DRAINAGE 06/15/2025 7:29 PM CDT - 06/23/2025 11:10 PM CDT Hospital Encounter [facility] 3B Surgical [address] [place] [address] Anibal Simon MD Wycoff, James, DO Ayeni, Opeyemi, MD Type 2 diabetes mellitus with skin complication, without long-term current use of insulin Discharge Disposition: [facility]) 06/15/2025 Travel from Last 3 Months Social History Tobacco Use Types Packs/Day Years Used Date Smoking Tobacco: Every Day Cigarettes 1 42.3 Started: 05/1983 Passive Smoke Exposure: Current Tobacco Cessation:Ready to Q uit: No; Counseling Given: Yes Comments:PT states she at times she feels ready to quit but now [...] worry about transportation for future doctor visits, brain picker medication, etc.? No 2024 Housing Stability [...] on file Sexual Orientation Not on file Last Filed Vital Signs Vital Sign Reading Time Taken Comments Blood Pressure 134/74 08/24/2025 3:38 PM CDT Pulse 92 08/24/2025 3:38 PM CDT Temperature 36.7 C (98.1 F) 08/24/2025 3:38 PM CDT Respiratory Rate 16 06/23/2025 7:20 AM CDT Oxygen Saturation 98% 08/24/2025 3:38 PM CDT Inhaled Oxygen Concentration - - Weight 88.6 kg (195 lb 5.2 oz) 06/23/2025 6:09 A M CDT Height 175.3 cm (5' 9 ) 06/16/2025 3:38 AM CDT Body Mass Index 28.84 06/16/2025 3:38 AM CDT Plan of Treatment Health Maintenance Due Date Last Done Comments DIABETES ANNUAL FOOT EXAM 1985 DIABETES ANNUAL RETINAL EXAM 1985 DIABETES MICROALBUMIN ANNUAL SCREEN 1985 LDL CHOLESTEROL ANNUAL 1985 DTAP/TDAP/TD VACCINES (1 - Tdap) 1986 HEPATITIS B VACCINES (1 of 3 - 19+ 3-dose series) 01/16 HPV/Cotest (21-29) 02/09/1988 CERVICAL CANCER SCREENING 1997 HPV/Cotest (30-65) 1997 PAP SMEAR 1997 BREAST CANCER SCREENING 2007 COLORECTAL SCREENING 02/09/2012 Colorectal Cancer Screening 02/09/2012 FIT-DNA Q 3 years 02/09/2012 FIT/FOBT Q 1 year 02/09/2012 Flex Sig/CT Colonography Q 5 years 02/09/2012 Lung Cancer Screening 2017 ZOSTER VACCINE (1 of 2) 2017 INFLUENZA VACCINE (#1) 2025 DIABETES HBA1C Q 6 MONTHS 12/16/2025 06/15/2025 Procedures Procedure Name Priority Date/Time Associated Diagnosis Comments SEDIMENTATION RATE Routine 07/25/2025 3: 50 AM CDT C-REACTIVE PROTEIN Routine 07/25/2025 3: 50 AM CDT CBC WITH DIFFERENTIAL Routine 07/25/2025 3:50 AM CDT COMPREHENSIVE METABOLIC PANEL Routine 07/25/2025 3:50 AM CDT SEDIMENTATION RATE Routine 07/18/2025 3: 30 AM CDT C-REACTIVE PROTEIN Routine 07/18/2025 3: 30 AM CDT CBC WITH DIFFERENTIAL Routine 07/18/2025 3:30 AM CDT COMPREHENSIVE METABOLIC PANEL Routine 07/18/2025 3:30 AM CDT CBC WITH DIFFERENTIAL Routine 07/07/2025 3:35 AM CDT COMPREHENSIVE METABOLIC PANEL Routine 07/07/2025 3:35 AM CDT SEDIMENTATION RATE Routine 07/04/2025 4: 40 AM CDT C-REACTIVE PROTEIN Routine 07/04/2025 4: 40 AM CDT CK Routine 07/04/2025 4:40 AM CDT CBC WITH DIFFERENTIAL Routine 07/04/2025 4:40 AM CDT COMPREHENSIVE METABOLIC PANEL Routine 07/04/2025 4:40 AM CDT TELEMETRY REPORT 06/24/2025 1:02 PM CDT T4 FREE Stat 06/24/2025 9:40 AM CDT T4 FREE Routine 06/24/2025 6:00 AM CDT TSH REFLEXIVE Routine 06/24/2025 6:00 AM CDT SEDIMENTATION RATE Routine 06/24/2025 3: 39 AM CDT CBC WITH DIFFERENTIAL Routine 06/24/2025 3:39 AM CDT C-REACTIVE PROTEIN Routine 06/24/2025 3: 39 AM CDT CK Routine 06/24/2025 3:39 AM CDT COMPREHENSIVE METABOLIC PANEL Routine 06/24/2025 3:39 AM CDT POC GLUCOSE Routine 06/23/2025 9:30 PM CDT POC GLUCOSE Routine 06/23/2025 6:19 PM CDT INSERT PICC LINE Stat 06/23/2025 2:05 PM CDT POC GLUCOSE Routine 06/23/2025 12:30 PM CDT POC GLUCOSE Routine 06/23/2025 7:34 AM CDT CBC WITH DIFFERENTIAL Routine 06/23/2025 5:52 AM CDT COMPREHENSIVE METABOLIC PANEL Routine 06/23/2025 5:52 AM CDT POC GLUCOSE Routine 06/22/2025 8:31 PM CDT POC GLUCOSE Routine 06/22/2025 5:28 PM CDT POC GLUCOSE Routine 06/22/2025 12:43 PM CDT DIFFERENTIAL, MANUAL Routine 06/22/2025 9:38 AM CDT CBC WITH DIFFERENTIAL Routine 06/22/2025 9:38 AM CDT COMPREHENSIVE METABOLIC PANEL Routine 06/22/2025 9:38 AM CDT POC GLUCOSE Routine 06/22/2025 8:07 AM CDT POC GLUCOSE Routine 06/21/2025 9:03 PM CDT POC GLUCOSE Routine 06/21/2025 5:11 PM CDT POC GLUCOSE Routine 06/21/2025 12:47 PM CDT POC GLUCOSE Routine 06/21/2025 7:51 AM CDT COMPREHENSIVE METABOLIC PANEL Routine 06/21/2025 4:38 AM CDT POC GLUCOSE Routine 06/20/2025 9:43 PM CDT POC GLUCOSE Routine 06/20/2025 6:47 PM CDT POC GLUCOSE Routine 06/20/2025 12:27 PM CDT POC GLUCOSE Routine 06/20/2025 8:55 AM CDT CK Routine 06/20/2025 5:05 AM CDT BASIC METABOLIC PANEL Routine 06/20/2025 5:05 AM CDT POC GLUCOSE Routine 06/19/2025 8:16 PM CDT POC GLUCOSE Routine 06/19/2025 5:59 PM CDT VANCOMYCIN LEVEL TROUGH Timed Study 06/19/2025 4:13 PM CDT TROPONIN 6 HR, 5TH GEN Timed Study 06/19/2025 4:13 PM CDT POC GLUCOSE Routine 06/19/2025 12:50 PM CDT XR CHEST PA OR AP 1 VW Routine 06/19/2025 12:14 PM CDT TROPONIN 2 HR, 5TH GEN Timed Study 06/19/2025 11:47 AM CDT EKG 12-LEAD Stat 06/19/2025 10:28 AM CDT TROPONIN BASELINE, 5TH GEN Stat 06/19/2025 10:17 AM CDT POC GLUCOSE Routine 06/19/2025 7:47 AM CDT MAGNESIUM LEVEL Routine 06/19/2025 6:24 AM CDT BASIC METABOLIC PANEL Routine 06/19/2025 6:24 AM CDT POC GLUCOSE Routine 06/18/2025 9:37 PM CDT POC GLUCOSE Routine 06/18/2025 12:48 PM CDT POC GLUCOSE Routine 06/18/2025 7:18 AM CDT VANCOMYCIN LEVEL TROUGH Timed Study 06/18/2025 4:27 AM CDT DIFFERENTIAL, MANUAL Routine 06/18/2025 4:26 AM CDT CBC WITH DIFFERENTIAL Routine 06/18/2025 4:26 AM CDT BASIC METABOLIC PANEL Routine 06/18/2025 4:26 AM CDT POC GLUCOSE Routine 06/17/2025 8:44 PM CDT POC GLUCOSE Routine 06/17/2025 5:28 PM CDT POC GLUCOSE Routine 06/17/2025 1:02 PM CDT POC GLUCOSE Routine 06/17/2025 9:11 AM CDT MAGNESIUM LEVEL Routine 06/17/2025 4:36 AM CDT CBC WITH DIFFERENTIAL Routine 06/17/2025 4:36 AM CDT BASIC METABOLIC PANEL Routine 06/17/2025 4:36 AM CDT POC GLUCOSE Routine 06/16/2025 9:32 PM CDT HSV BY PCR Routine 06/16/2025 6:59 PM CDT POC GLUCOSE Routine 06/16/2025 5:47 PM CDT POC GLUCOSE Routine 06/16/2025 12:29 PM CDT DIFFERENTIAL, MANUAL Routine 06/16/2025 6:26 AM CDT COMPREHENSIVE METABOLIC PANEL Routine 06/16/2025 6:26 AM CDT CBC WITH DIFFERENTIAL Routine 06/16/2025 6:26 AM CDT POC GLUCOSE Routine 06/16/2025 5:50 AM CDT OT EVAL AND TREAT Routine 06/16/2025 3:2 0 AM CDT POC GLUCOSE Routine 06/16/2025 2:14 AM CDT PATHOLOGY Pathology 06/16/2025 1:24 AM CDT ANAEROBIC/AEROBIC CULTURE W GRAM STAIN Routine 06/16/2025 1:24 AM CDT POC GLUCOSE Routine 06/16/2025 1:20 AM CDT AZ ANES INSERT CATH, ART, PERCUT, SHORTTERM Routine 06/15/2025 11:57 PM CDT AZ ANES INSERT ENDOTRACHEAL AIRWAY Routine 06/15/2025 11:38 PM CDT AZ I&D HEMATOMA SEROMA/FLUID COLLECTION 06/15/2025 9:40 PM CDT infection EXTRA TUBE (URINE COLE) Stat 06/15/2025 8:44 PM CDT URINALYSIS W/REFLEX MICROSCOPIC Stat 06/15/2025 8:44 PM CDT BLOOD CULTURE Stat 06/15/2025 8:10 PM CDT BLOOD CULTURE Stat 06/15/2025 8:10 PM CDT HEMOGLOBIN A1C Routine 06/15/2025 8:09 PM CDT LACTIC ACID Stat 06/15/2025 8:09 PM CDT COMPREHENSIVE METABOLIC PANEL Stat 06/15/2025 8:09 PM CDT PTT Stat 06/15/2025 8:09 PM CDT PROTIME-INR Stat 06/15/2025 8:09 PM CDT CBC WITH DIFFERENTIAL Stat 06/15/2025 8:09 PM CDT BLOOD CULTURE Stat 06/15/2025 8:09 PM CDT BLOOD CULTURE Stat 06/15/2025 8:09 PM CDT COMPREHENSIVE METABOLIC PANEL Routine 06/15/2025 11:50 AM CDT from Last 3 Months Results * (ABNORMAL) CBC WITH DIFFERENTIAL (07/25/2025 3:50 AM CDT) Only the most recent of11 resultswithin the time period is included. [facility] WBC 8.7 4.8 - 10.8 K/uL 07/25/2025 6:38 AM CDT [facility] RBC 4.36 4.20 - 5.40 M/uL 07/25/2025 6:38 AM CDT [facility] HEMOGLOBIN 12.7 12.0 - 16.0 g/dL 07/25/2025 6:38 AM CDT [facility] HEMATOCRIT 38.3 36.0 - 46.0 % 07/25/2025 6:38 AM CDT [facility] MCV 87.8 84.0 - 103.0 fL 07/25/2025 6:38 AM CDT [facility] MCH 29.1 27.0 - 34.0 pg 07/25/2025 6:38 AM CDT [facility] MCHC 33.2 30.0 - 35.0 g/dL 07/25/2025 6:38 AM CDT [facility] PLATELETS 251 140 - 440 K/uL 07/25/2025 6:38 AM CDT [facility] MPV 9.7 8.9 - 12.8 fL 07/25/2025 6:38 AM CDT [facility] RDW 13.0 11.0 - 14.5 % 07/25/2025 6:38 [facility] R[facility]-STDEV 41.8 37.0 - 54.0 fL 07/25/2025 6:38 AM CDT [facility] NEUTROPHILS 38(L) 42 - 75 % 07/25/2025 6:38 AM CDT [facility] LYMPHOCYTES 45(H) 24 - 44 % 07/25/2025 6:38 AM CDT [facility] MONOCYTES 8 2 - 10 % 07/25/2025 6:38 AM CDT [facility] EOSINOPHILS 8(H) 0 - 7 % 07/25/2025 6:38 AM CDT [facility] BASOPHILS 1 0 - 1 % 07/25/2025 6:38 AM CDT [facility] IMMATURE GRANULOCYTES 1 0 - 2 % 07/25/2025 6:38 AM CDT [facility] NEUTROPHIL ABSOLUTE 3.31 2.00 - 8.00 K/uL 07/25/2025 6:38 AM CDT [facility] LYMPHOCYTE ABSOLUTE 3.92 1.20 - 4.00 K/uL 07/25/2025 6:38 AM CDT [facility] MONOCYTE ABSOLUTE 0.68(H) 0.10 - 0.60 K/uL 07/25/2025 6:38 AM CDT [facility] EOSINOPHIL ABSOLUTE 0.65 0.00 - 0.70 K/uL 07/25/2025 6:38 AM CDT [facility] BASOPHILS ABSOLUTE 0.07 0.00 - 0.20 K/uL 07/25/2025 6:38 AM CDT [facility] IMMATURE GRANULOCYTES ABSOLUTE 0.04 0.00 - 0.10 K/uL 07/25/2025 6:38 AM CDT [facility] SMEAR REVIEWED: NA - Not Applicable 07/25/2025 6:38 AM T [facility] Blood Collection / Unknown 07/25/2025 3:50 AM CDT 07/25/2025 6:34 AM CDT us La Kaufman MD HEMATOLOGY ORDERABLES Helene feldman Result [facility] CLIA # [id number] [address] [address] [place] [address] * (ABNORMAL) SEDIMENTATION RATE (07/25/2025 3:50 AM CDT) Only the most recent of4 resultswithin the time period is included. ESR (SEDIMENTATION RATE) 39(H) 0 - 20 mm/Hr 07/25/2025 7:03 AM CDT [facility] Blood Collection / Unknown 07/25/2025 3:50 AM CDT 07/25/2025 6:34 AM CDT La Kaufman MD HEMATOLOGY ORDERABLES Helene l Result Performing Organization Address [facility]/ZIP Co de Phone Number [facility] CLIA # [id number] [facility] [address] * (ABNORMAL) C-REACTIVE PROTEIN (07/25/2025 3:50 AM CDT) Only the most recent of4 resultswithin the time period is included. Pathologist [facility] CRP 5.8(H) 0.0 - 5.0 mg/L 07/25/2025 7:12 AM CDT [facility] Blood Collection / Unknown 07/25/2025 3:50 AM CDT 07/25/2025 6:34 AM CDT La Kaufman MD CHEMISTRY ORDERABLES Final Result [facility] CLIA # [id number] [address] [address] * (ABNORMAL) COMPREHENSIVE METABOLIC PANEL (07/25/2025 3:50 AM CDT) Only the most recent of11 resultswithin the time period is included. SODIUM 140 136 - 145 mmol/L 07/25/2025 7:16 AM CDT [facility] POTASSIUM 4.2 3.5 - 5.1 mmol/L 07/25/2025 7:16 AM [facility] CHLORIDE 100 98 - 107 mmol/L 07/25/2025 7:16 AM [facility] CO2 23 22 - 29 mmol/L 07/25/2025 7:16 AM [facility] CALCIUM 9.5 8.6 - 10.0 mg/dL 07/25/2025 7:16 AM [facility] BUN 27(H) 6 - 20 mg/dL 07/25/2025 7:16 AM [facility] CREATININE 0.83 0.51 - 0.95 mg/dL 07/25/2025 7:16 AM [facility] GLUCOSE 106(H) 74 - 99 mg/dL 07/25/2025 7:16 AM [facility] TOTAL PROTEIN 7.1 6.4 - 8.3 g/dL 07/25/2025 7:16 AM [facility] ALBUMIN 3.7 3.5 - 5.2 g/dL 07/25/2025 7:16 AM [facility] BILIRUBIN TOTAL 0.2 0.0 - 1.0 mg/dL 07/25/2025 7:16 AM [facility] ALKALINE PHOSPHATASE 88 35 - 104 U/L 07/25/2025 7:16 AM [facility] AST 27 10 - 35 U/L 07/25/2025 7:16 AM [facility] Comment:Hemolysis present. R esult may be falsely elevated. ALT 22 <=35 U/L 07/25/2025 7:16 AM [facility] GFR >60 >=60 mL/min/1.7 3 sq meter 07/25/2025 7:16 AM [facility] Comment:eGFR calculated with 2020 CKD-EPI equation. Vegetarian diet, extremely high or low muscle mass, and may affect results. Cystatin C with Glomerular Filtration Rate is a suitable alternative for these patients. ANION GAP 17 9 - 20 mmol/L 07/25/2025 7:16 AM CDT [facility] Blood Collection / Unknown 07/25/2025 3:50 AM CDT 07/25/2025 6:34 AM CDT La Kaufman MD CHEMISTRY ORDERABLES Final Result Performing Organization Address City/[facility] [[email or web address]] Co de Phone Number [facility] CLIA # [id number] [address] [address] [place], [place] [address] * (ABNORMAL) CK (07/04/2025 4:40 AM CDT) Only the most recent of3 resultswithin the time period is included. CK 21(L) 26 - 192 U/L 07/04/2025 7:04 AM CDT [facility] Blood Collection / Unknown 07/04/2025 4:40 AM CDT 07/04/2025 5:46 AM CDT Pete Kaplan DO CHEMISTRY ORDERABLES Final R esult Performing Organization Address [facility] [[email or web address]] Co de Phone Number [facility] CLIA # [id number] [address] [address] * TELEMETRY REPORT (06/24/2025 1:02 PM CDT) Provider Scanning ECG ORDERABLES Final Result * (ABNORMAL) T4 FREE (06/24/2025 9:40 AM CDT) Only the most recent of2 resultswithin the time period is included. T4 FREE 0.64(L) 0.81 - 1.70 ng/dL 06/24/2025 11:33 AM CDT [facility] Blood Collection / Unknown 06/24/2025 9:40 AM CDT 06/24/2025 10:39 AM CDT Pete Kaplan DO CHEMISTRY ORDERABLES Final R esult Performing Organization Address City/[facility]/ZIP Co de Phone Number [facility] CLIA # [id number] [address] [place] [address] * (ABNORMAL) TSH REFLEXIVE (06/24/2025 6:00 AM CDT) TSH 17.14(H) 0.27 - 4.20 uIU/mL 06/24/2025 8:13 AM CDT [facility] Blood Collection / Unknown 06/24/2025 6:00 AM CDT 06/24/2025 6:56 AM CDT Pete Kaplan DO CHEMISTRY ORDERABLES Final R esult Performing Organization Address [facility] de Phone Number [facility] CLIA # [id number] [address] [facility] [place] [address] * (ABNORMAL) POC GLUCOSE (06/23/2025 9:30 PM CDT) Only the most recent of33 resultswithin the time period is included. GLUCOSE POC 130(H) 74 - 99 mg/dL 06/23/2025 9:30 PM CDT [facility] SPECIMEN SOURCE, GLUCOSE POC Capillary 06/23/2025 9:30 PM CDT [facility] Blood, whole 06/23/2025 9:30 PM CDT 06/23/2025 10:53 PM CDT Brooke Maradiaga MD POINT OF CARE TESTING Final Res ult Performing Organization Address [facility]/ZIP Co de Phone Number [facility] CLIA # [id number] [address] [place] [address] * INSERT PICC LINE (06/23/2025 2:05 PM CDT) Narrative Jennifer Gold, RN - 06/23/2025 2:05 PM CDT Jennifer Gold, RN 06/23/2025 2:05 PM PICC order was canceled. See vascular access consult note. Brooke Maradiaga MD IV THERAPY ORDERABLES Final Res ult * (ABNORMAL) MANUAL DIFFERENTIAL (06/22/2025 9:38 AM CDT) Only the most recent of3 resultswithin the time period is included. SEGMENTED NEUTROPHILS 70(H) 36 - 66 % 06/22/2025 10:30 AM [facility] LYMPHOCYTES RELATIVE 20(L) 24 - 44 % 06/22/2025 10:30 AM [facility] MONOCYTES RELATIVE 6 4 - 10 % 2024 10:30 AM [facility] EOSINOPHILS RELATIVE 2 0 - 3 % 06/22/2025 10:30 AM [facility] METAMYELOCYTES RELATIVE 1 0 - 1 % 06/22/2025 10:30 AM [facility] MYELOCYTES - REL (DIFF) 1 0 - 1 % 06/22/2025 10:30 AM [facility] PLATELET EST. Adequate 06/22/2025 10:30 AM [facility] NEUTROPHILS ABSOLUTE COUNT 10.29(H) 2.00 - 8.00 K/uL 06/22/2025 10:30 AM [facility] LYMPHOCYTES ABSOLUTE 2.94 1.20 - 4.00 K/uL 06/22/2025 10:30 AM T [facility] ATYPICAL LYMPHS ABSOLUTE 06/22/2025 10:30 AM [facility] MONOCYTES ABSOLUTE 0.88(H) 0.10 - 0.60 K/uL 06/22/2025 10:30 AM [facility] EOSINOPHILS ABSOLUTE 0.29 0.00 - 0.70 K/uL 06/22/2025 10:30 AM CDT [facility] RBC MORPHOLOGY Normal 06/22/2025 10:30 AM CDT [facility] TOTAL CELLS COUNTED IN DIFF 100 06/22/2025 10:30 AM T [facility] Blood Venipuncture / Unknown 06/22/2025 9:38 AM CDT 06/22/2025 9:56 AM CDT Brooke Maradiaga MD HEMATOLOGY ORDERABLES COM Final Result [facility] CLIA # [id number] [address] [place] [id number] * (ABNORMAL) BASIC METABOLIC PANEL (06/20/2025 5:05 AM CDT) Only the most recent of4 resultswithin the time period is included. SODIUM 138 136 - 145 mmol/L 06/20/2025 5:58 AM [facility] POTASSIUM 3.7 3.5 - 5.1 mmol/L 06/20/2025 5:58 AM [facility] CHLORIDE 105 98 - 107 mmol/L 06/20/2025 5:58 AM [facility] CO2 21(L) 22 - 29 mmol/L 06/20/2025 5:58 AM [facility] CALCIUM 8.7 8.6 - 10.0 mg/dL 06/20/2025 5:58 AM [facility] BUN 17 6 - 20 mg/dL 06/20/2025 5:58 AM T [facility] CREATININE 0.55 0.51 - 0.95 mg/dL 06/20/2025 5:58 AM [facility] GLUCOSE 184(H) 74 - 99 mg/dL 06/20/2025 5:58 AM [facility] GFR >60 >=60 mL/min/1.7 3 sq meter 06/20/2025 5:58 AM CDT [facility] Comment:eGFR calculated with 2020 CKD-EPI equation. Vegetarian diet, extremely high or low muscle mass, and may affect results. Cystatin C with Glomerular Filtration Rate is a suitable alternative for these patients. ANION GAP 12 9 - 20 mmol/L 06/20/2025 5:58 AM CDT [facility] Blood Venipuncture / Unknown 06/20/2025 5:05 AM CDT 06/20/2025 5:25 AM CDT Brooke Maradiaga MD CHEMISTRY ORDERABLES Final Resu lt Performing Organization Address City/[facility] [[email or web address]] Co de Phone Number [facility] CLIA # [id number] [id number] * (ABNORMAL) TROPONIN 6 HR, 5TH GEN (06/19/2025 4:13 PM CDT) TROPONIN T, 6 HR 5TH GEN 18(H) <11 ng/L 06/19/2025 6:13 PM CDT [facility] DELTA 6HR TROPONIN T 3 See Interp. 06/19/2025 6:13 PM CDT [facility] Blood Venipuncture / Unknown 06/19/2025 4:13 PM CDT 06/19/2025 5:51 PM CDT Narrative [facility] - 06/19/2025 6:13 PM CDT Troponin elevated. Delta indeterminate. Brooke Maradiaga MD CHEMISTRY ORDERABLES Final Resu lt Performing Organization Address [facility] [[email or web address]] Co de Phone Number [facility] CLIA # [id number] [address] [address] * VANCOMYCIN LEVEL TROUGH (06/19/2025 4:13 PM CDT) Only the most recent of2 resultswithin the time period is included. VANCOMYCIN, TROUGH 16.0 10.0 - 17.0 ug/mL 06/19/2025 5:10 PM CDT [facility] Blood Venipuncture / Unknown 06/19/2025 4:13 PM CDT 06/19/2025 4:36 PM CDT Jw Copeland DO CHEMISTRY ORDERABLES Final Resul t [facility] CLIA # [id number] [address] [address] [place] [address] * XR CHEST PA OR AP 1 VW (06/19/2025 12:14 PM CDT) Anatomical Region Laterality Modality Chest Computed Radiogr aphy 06/19/2025 12:1 4 PM CDT Impressions 06/19/2025 12:31 PM CDT IMPRESSION: No acute cardiopulmonary process on this single view. Narrative 06/19/2025 12:31 PM CDT XR CHEST PA OR AP 1 VW Reason For Exam: Chest Pain. 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 COMPARISON: None FINDINGS: Cardiomediastinal silhouette is within normal limits. No focal consolidation, large pleural effusion, or pneumothorax is seen. No acute osseous abnormality is appreciated. Procedure Note Rodolfo Sung MD - 06/19/2025 XR CHEST PA OR AP 1 VW Reason For Exam: Chest Pain. 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 COMPARISON: None FINDINGS: Cardiomediastinal silhouette is within normal limits. No focal consolidation, large pleural effusion, or pneumothorax is seen. No acute osseous abnormality is appreciated. IMPRESSION: No acute cardiopulmonary process on this single view. Brooke Maradiaga MD DIAGNOSTIC IMAGING ORDERABLES F inal Result * (ABNORMAL) TROPONIN 2 HR, 5TH GEN (06/19/2025 11:47 AM CDT) TROPONIN T, 2 HR 5TH GEN 16(H) <=10 ng/L 06/19/2025 12:31 PM CDT [facility] DELTA 2HR TROPONIN T 1 See Interp. 06/19/2025 12:31 PM CDT [facility] Blood Venipuncture / Unknown 06/19/2025 11:47 AM CDT 06/19/2025 11:53 AM CDT Narrative [facility] - 06/19/2025 12:31 PM CDT Troponin elevated. Delta not changing. us Brooke Maradiaga MD CHEMISTRY ORDERABLES Final Resu lt [facility] CLIA # [id number] [address] [place] [address] * EKG 12-LEAD (06/19/2025 10:28 AM CDT) 06/19/2025 10:2 8 AM CDT Narrative INTERFACE SYSTEM - 06/19/2025 1:23 PM CDT [place] [id number] Test Date: 2025-06-19 Pat Name: FADUMO JIMENEZ Department: Room: [address] [place] [address] Gender: Female Plate Gauger: [id number] : 1965 Requested By: Order Number: [id number] Reading MD: Kayli Ibrahim Measurements Intervals [place] Rate: 87 P: 52 [place]: 168 QRS: 72 QRSD: 80 T: 53 QT: 364 QTc: 438 Interpretive Statements Normal sinus rhythm Normal ECG Electronically Signed On 06-19-2025 13:23:16 CDT by Kayli Ibrahim Procedure Note Provider, Historical - 06/19/2025 [id number] [id number] Test Date: 2025-06-19 Pat Name: FADUMO JIMENEZ Department: 12 Room: [address] [place] [address] Gender: Female Plate Gauger: [id number] : 1965 Requested By: Order Number: [id number] Reading MD: Kayli Ibrahim Measurements Intervals [place] Rate: 87 P: 52 [place]: 168 QRS: 72 QRSD: 80 T: 53 QT: 364 QTc: 438 Interpretive Statements Normal sinus rhythm Normal ECG Electronically Signed On 06-19-2025 13:23:16 CDT by Kayli Ibrahim Brooke Maradiaga MD ECG ORDERABLES Final Result Performing Organization Address City/[facility]/ZIP Co de Phone Number INTERFACE SYSTEM Refer to clinic/hospital department * (ABNORMAL) TROPONIN BASELINE, 5TH GEN (06/19/2025 10:17 AM CDT) TROPONIN T, BASELINE 5TH GEN 15(H) <=10 ng/L 06/19/2025 11:00 AM CDT [facility] Blood Venipuncture / Unknown 06/19/2025 10:17 AM CDT 06/19/2025 10:26 AM CDT Narrative [facility] - 06/19/2025 11:00 AM CDT Troponin elevated. Brooke Maradiaga MD CHEMISTRY ORDERABLES Final Resu lt Performing Organization Address [facility] de Phone Number [facility] CLIA # [id number] [address] [place] [address] * MAGNESIUM LEVEL (06/19/2025 6:24 AM CDT) Only the most recent of2 resultswithin the time period is included. MAGNESIUM 1.7 1.6 - 2.6 mg/dL 06/19/2025 10:54 AM CDT [facility] Blood Venipuncture / Unknown 06/19/2025 6:24 AM CDT 06/19/2025 7:17 AM CDT Brooke Maradiaga MD CHEMISTRY ORDERABLES Final Resu lt Performing Organization Address [facility] [[email or web address]] Co de Phone Number [facility] CLIA # [id number] [address] [address] * HSV BY PCR (06/16/2025 6:59 PM CDT) Herpes Simplex Virus Type 1 by PCR Not Detected Not Detected 06/17/2025 11:09 AM CDT [facility] Herpes Simplex Virus Type 2 by PCR Not Detected Not Detected 06/17/2025 11:09 AM CDT [facility] Lesion/Drainage Fluid ENTIRE MOUTH REGION / Unknown Collection / Unknown 06/16/2025 6:59 PM CDT 06/16/2025 7:16 PM CDT Piyush Haynes PA-C BODY FLUIDS AND STOOLS Final Res ult Performing Organization Address [facility] [[email or web address]] Co de Phone Number [facility] CLIA # [id number] [facility] [address] * PATHOLOGY (06/16/2025 1:24 AM CDT) CASE REPORT Surgical Pathology Report Case: [id number] Authorizing Provider: Jw Copeland DO Collected: 06/16/2025 01:24 AM Ordering Location: [facility] Received: 06/16/2025 06:34 AM Operating Room Pathologist: Erin Mosquera MD Specimen: Soft Tissue, left groin 11:14 AM CDT [facility] FINAL DIAGNOSIS A. Skin and soft tissue, left groin, debridement - Skin and subcutaneous tissues with extensive acute inflammation and necrosis - No malignancy identified - Correlation with microbiology studies is suggested. Erin Mosquera MD [id number] 11:14 AM CDT [facility] at 1114 CDT GROSS DESCRIPTION A. Received fresh labeled Jimenez -left groin is a 23.7 x 17.5 x 6.0 cm fragment of skin and fibromuscular soft tissue. Sectioning reveals approximately 75% of the tissue contains significant necrotic abscess debris. The overlying skin appears partially viable. Nutrition Helper sections are submitted in A1. Grossed by: Lorena Diaz MS, PA (ASCP)CM 5 11:14 AM CDT [facility] OPERATIVE PROCEDURE 1: PERINEAL INCISION AND DRAINAGE 5 11:14 AM CDT [facility] CLINICAL INFORMATION infection 11:14 AM CDT [facility] COMMENT The [employer] voice-activated dictation system may have been used in the creation of this report. Inherent to this system is the possibility of errors in syntax, grammar, punctuation, or other areas that could impact interpretation. If there are interpretive questions about the report, please contact the performing pathologist. Unless gross only is specified in the diagnosis, the microscopic examination substantiates the above cited diagnosis. The performance characteristics of all immunohistochemical stains cited in this report (if any) were determined by the Diagnostic Immunohistochemistry Laboratory of [facility] in compliance with CLIA'88 regulations. Some of these tests rely on the use of analyte specific reagents and are subject to specific labeling requirements by the FDA. All controls show appropriate reactivity. This testing was developed by the Diagnostic Immunohistochemistry Laboratory of [facility]. It has not been cleared or approved by the FDA. The FDA has determined that such clearance or approval is not necessary. 11:14 AM CDT [facility] Tissue (Soft Tissue) Collection / Unknown 06/16/2025 1:24 AM CDT 06/16/2025 6:34 AM CDT us Jw Copeland DO PATHOLOGY/CYTOLOGY ORDERABLES Fi nal Result [facility] CLIA # [id number] [address] [place] [address] * (ABNORMAL) ANAEROBIC/AEROBIC CULTURE W GRAM STAIN (06/16/2025 1:24 AM CDT) CULTURE 3 to 4+ or numerous Pichia kudriavzevii (formerly Yina krusei)(A) KALEY MCG/ML 06/19/2025 6:54 AM CDT [facility] Comment:Fluconazole results not available for this organism. Pichia kudriavzevii (formerly Yina krusei) is considered intrinsically resistant to this antifungal agent. CULTURE 3 to 4+ or numerous Lactobacillus species(A) KALEY MCG/ML 06/19/2025 6:54 AM CDT [facility] Comment: Susceptibility not routinely performed This organism usually considered a source/site contaminant. Lactobacillus species are expected to be resistant to Vancomycin. If treatment is necessary, penicillin or ampicillin with possible addition of aminoglycoside is recommended based on patient severity. CULTURE COAGULASE NEGATIVE STAPHYLOCOCCUS SPECIES, NOT STAPHYLOCOCCUS LUGDUNENSIS(A) KALEY MCG/ML 06/19/2025 6:54 AM CDT [facility] Comment: This organism usually considered a source/site contaminant. Susceptibility not routinely performed GRAM STAIN 4+ (Heavy) Gram variable rods 06/19/2025 6:54 AM CDT [facility] GRAM STAIN 3+ (Moderate) Yeast 06/19 6:54 AM CDT [facility] GRAM STAIN 2+ (Few) Polymorphonuclear WBC 06/19/2025 6:54 AM CDT [facility] Tissue (Groin, left) Collection / Unknown 06/16/2025 1:24 AM CDT 06/16/2025 1:27 AM CDT Narrative Organism Antibiotic Method Susceptibility Pichia kudriavzevii (formerl y Yina krusei) MICAFUNGIN KALEY MCG/ML 0.12 mcg/mL: Susceptible Jw Copeland DO MICROBIOLOGY - GENERAL ORDERABLE S Final Result [facility] CLIA # [id number] [address] [address] [place] [id number] * [place] ANES INSERT CATH, ART, PERCUT, SHORTTERM (06/15/2025 11:57 PM CDT) Narrative Martinez Diego II, DO - 06/15/2025 11:57 PM CDT Martinez Diego II, DO 06/15/2025 11:58 PM Arterial Line Insertion Patient location during procedure: OR Staffing Performed: Anesthesiologist (/) Authorized by: Martinez Diego II, DO Performed by: Martinez Diego II, DO time out called Patient was prepped and draped in usual sterile fashion Indications: multiple ABGs and hemodynamic monitoring Hand hygiene performed prior to procedure Sterile Barriers: gloves, cap and mask Preparation: skin prepped with ChloraPrep Skin prep agent dried: skin prep agent completely dried prior to procedure Patient position: flat Location: left radial modified Seldinger technique used Catheter type: radial kit Catheter size: 20 G Catheter Length (in.): 2 [place] Identification: palpation technique Number of attempts: 1 Successful placement: yes Assessment: blood return through port Procedure uneventful Post-procedure: dressing applied and line secured Comments: Sterile technique, sterile dressing, tape secured. Martinez Diego II, DO PROCEDURE/MINOR ESQUIVEL RGICAL ORDERABLES Final Result * [place] ANES INSERT ENDOTRACHEAL AIRWAY (06/15/2025 11:38 PM CDT) Narrative Kayla Villarreal CRNA - 06/15/2025 11:38 PM CDT Kayla Villarreal CRNA 06/16/2025 12:15 AM Airway Date/Time: 06/15/2025 11:38 PM Location: OR Patient Identity Confirmed by: Verbally with patient and armband Staffing Performed: VETERINARY TECHNICIAN/CAA Authorized by: Martinez Diego II, DO Performed by: Kayla Villarreal CRNA Indications and Patient Condition: Indications for Airway Management: Anesthesia Sedation Level: general anesthesia Preoxygenated: yes Mask Difficulty Assessment: 1 - vent by mask Plan to extubate at end of case: Yes Final Airway Details: Final Airway Type: Endotracheal airway ETT (hi-lo tube) Cuffed: Yes Cuff Volume (mL): 8 Technique Used for Successful ETT Placement: Direct laryngoscopy Devices/Methods Used in Placement: Intubating stylet Blade Type: curved blade Blade Size: 3 Insertion Site: Oral ETT Size (mm): 7.5 Measured from: Gums ETT to Gums (cm): 22 Tube secured with: Tape Placement Verified by: auscultation, end tidal CO2 and chest rise Cormack-Lehane Classification: Grade I - full view of glottis Number of Attempts at Approach: 1 Additional Procedure Information: atraumatic Martinez Diego II, DO PROCEDURE/MINOR ESQUIVEL RGICAL ORDERABLES Final Result * EXTRA TUBE (URINE COLE) (06/15/2025 8:44 PM CDT) Urine URINE SPECIMEN OBTAINED BY CLEAN CATCH PROCEDURE / Unknown Collection / Unknown 06/15/2025 8:44 PM CDT 06/15/2025 9:07 PM CDT Anibal Simon MD URINE ORDERABLES Final Result [facility] CLIA # [id number] [address] [place] [address] * (ABNORMAL) URINALYSIS WITH REFLEX MICROSCOPIC (06/15/2025 8:44 PM CDT) COLOR UA Pale Yellow Pale to Dark Yellow 06/15/2025 9:42 PM CDT [facility] CLARITY UA Clear Clear 06/15/2025 9:42 PM CDT [facility] SPECIFIC GRAVITY UA 1.048(H) 1.003 - 1.035 06/15/2025 9:42 PM CDT [facility] PH UA 6.0 5.0 - 8.0 06/15/2025 9:42 PM CDT [facility] LEUKOCYTE ESTERASE UA Negative Negative 06/15/2025 9:42 PM CDT [facility] NITRITE UA Negative Negative 06/15/2025 9:42 PM CDT [facility] PROTEIN UA Negative Negative 06/15/2025 9:42 PM CDT [facility] GLUCOSE UA 4+(A) Negative 06/15/2025 9:42 PM CDT [facility] KETONES UA 2+(A) Negative 06/15/2025 9:42 PM CDT [facility] UROBILINOGEN UA <2.0 <2.0 mg/dL 9:42 PM CDT [facility] BILIRUBIN UA Negative Negative 06/15/2025 9:42 PM CDT [facility] BLOOD UA Negative Negative 06/15/2025 9:42 PM CDT [facility] Urine URINE SPECIMEN OBTAINED BY CLEAN CATCH PROCEDURE / Unknown Collection / Unknown 06/15/2025 8:44 PM CDT 06/15/2025 9:07 PM CDT Anibal Simon MD URINE ORDERABLES Final Result Performing Organization Address City/[facility]/ZIP Co de Phone Number [facility] CLIA # [id number] [address] [address] [place] [address] * BLOOD CULTURE (06/15/2025 8:10 PM CDT) Only the most recent of2 resultswithin the time period is included. BLOOD CULTURE No growth 06/20/2025 10:44 PM CDT [facility] Blood (Peripheral) Venipuncture / Unknown 06/15/2025 8:10 PM CDT 06/15/2025 8:37 PM CDT Anibal Simon MD MICROBIOLOGY - GENERAL ORDERABLES Final Result Performing Organization Address City/[facility]/ZIP Co de Phone Number [facility] CLIA # [id number] [address] [place] [address] * LACTIC ACID (06/15/2025 8:09 PM CDT) LACTIC ACID 1.5 <=2.0 mmol/L 06/15/2025 9:05 PM CDT [facility] Blood Venipuncture / Unknown 06/15/2025 8:09 PM CDT 06/15/2025 8:38 PM CDT Anibal Simon MD CHEMISTRY ORDERABLES F inal Result [facility] CLIA # [id number] [address] [address] [place] [address] * (ABNORMAL) PTT (06/15/2025 8:09 PM CDT) Pathologist [facility] PTT 23.3(L) 24.8 - 37.2 seconds 06/15/2025 8:52 PM CDT [facility] Blood Venipuncture / Unknown 06/15/2025 8:09 PM CDT 06/15/2025 8:31 PM CDT Narrative [facility] - 06/15/2025 8:52 PM CDT Therapeutic Range: Hi-level PE/DVT heparin protocol 80.1 - 95.0 sec Lo-level PE/DVT heparin protocol 70.1 - 85.0 sec Cardiac Heparin Protocol 70.1 - 100.0 sec Anibal Simon MD HEMATOLOGY ORDERABLES Final Result [facility] CLIA # [id number] [address] [address] [place] [address] * (ABNORMAL) PROTIME-INR (06/15/2025 8:09 PM CDT) PROTIME 15.0(H) 12.7 - 14.9 Seconds 06/15/2025 8:52 PM CDT [facility] INR 1.1 0.8 - 1.2 06/15/2025 8:52 PM CDT [facility] Blood Venipuncture / Unknown 06/15/2025 8:09 PM CDT 06/15/2025 8:31 PM CDT [facility] - 06/15/2025 8:52 PM CDT Expected Values for INR: DVT/PE Goal INR 2.5; range 2.0 - 3.0 Valve Replacement Tissue Goal INR 2.5; range 2.0 - 3.0 Valve Replacement Mechanical Goal INR 3.0; range 2.5 - 3.5 POST-CO Goal INR 2.5; range 2.0 - 3.0 or Goal INR 3.0; range 2.5 - 3.5 Atrial Fibrillation Goal INR 2.5; range 2.0 - 3.0 Ischemic Stroke Goal INR 2.5; range 2.0 - 3.0 Anibal Simon MD HEMATOLOGY ORDERABLES Final Result [facility] CLIA # [id number] [address] [place] [address] * (ABNORMAL) HEMOGLOBIN A1C (06/15/2025 8:09 PM CDT) HEMOGLOBIN A1C 16.4(H) <=5.6 % 06/16/2025 12:01 PM CDT [facility] EST. AVG GLUCOSE, A1C 424 mg/dL 06/16/2025 12:01 PM CDT [facility] Blood Venipuncture / Unknown 06/15/2025 8:09 PM CDT 06/15/2025 8:31 PM CDT [facility] - 06/16/2025 12:01 PM CDT HGB A1C INTERPRETATION NORMAL: <5.7% PRE-DIABETES: 5.7 - 6.4% DIABETES: 6.5% OR GREATER Jw Copeland DO CHEMISTRY ORDERABLES Final Resul t [facility] # [id number] [address] [id number] [place] [address] from Last 3 Months Insurance [facility] PLAN [facility] [id number] Advance Directives For more information, please contact: [phone] * Full Code (Latest Code Status on File) Date Activated Date Inactivated Comments 06/16/2025 3:20 AM 06/24/2025 1:54 AM
--- OUTSIDE RECORDS SUMMARY | 2025-09-13 16:34 | XMS_ITS | Encounter Summary ---
Author Organization [facility] Address [address] [place] [address] Care Team Providers Care Office Helper Clerical Name Role Phone Unavailable Primary Care Provider Unavailabl e Encounter Details Date Type Department Care Team (Late st Contact Info) Description 06/24/2025 Lab Requisition [facility] [address] [place] [address] Pete Kaplan, DO [address] [place] [address] Social History Tobacco Use Types [...] worry about transportation for future doctor visits, fruit or nut picker medication, etc.? No 2024 Housing Stability [...] Procedure Name Priority Date/Time Associated Diagnosis Comments TSH REFLEXIVE Routine 06/24/2025 6:00 AM CDT T4 FREE Routine 06/24/2025 6:00 AM CDT documented in this encounter Results * (ABNORMAL) T4 FREE (06/24/2025 6:00 AM CDT) T4 FREE 0.68(L) 0.81 - 1.70 ng/dL 06/24/2025 8:57 AM CDT [facility] Blood Collection / Unknown 06/24/2025 6:00 AM CDT 06/24/2025 6:56 AM CDT Pete Kaplan DO CHEMISTRY ORDERABLES Final R esult [facility] CLIA # [id number] [address] [place] [id number] * (ABNORMAL) TSH REFLEXIVE (06/24/2025 6:00 AM CDT) TSH 17.14(H) 0.27 - 4.20 uIU/mL 06/24/2025 8:13 AM CDT [facility] Blood Collection / Unknown 06/24/2025 6:00 AM CDT 06/24/2025 6:56 AM CDT Pete Kaplan DO CHEMISTRY ORDERABLES Final R esult Performing Organization Address [facility] Co de Phone Number [facility] # [id number] [address] [place] [phone] documented in this encounter Visit Diagnoses Not on filedocumented in this encounter
--- NOTE | 2025-09-13 18:22 | W.ED.ABDPA2 ---
HPI - Abdominal Pain General: Chief Complaint: Abdominal Pain Stated Complaint: abd pain, left, above and below prior surg site Time Seen by Provider: 09/13/25 18:03 Source: patient Mode of arrival: ambulatory Limitations: no limitations History of Present Illness: Patient is a 50-year-old female presents to ED today with complaint of left-sided abdominal pain. She states symptoms have been present over the past week or so. She feels like maybe she pulled something as she noticed pain about a week ago after bending over. 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 She states she has been doing well since the surgery and has been following up with our wound care team here. She is pleased with her results stating that her very large incision is now the size of a dime and seems to be healing well. She said her PCP was worried that maybe they didn't get all the infection and now it has spread up into my abdomen . Patient is not complaining of nausea, vomiting, changes in bowel movements. She has no urinary symptoms. No fevers. MD elicited complaint: abdominal pain Onset (ago): day(s) Pain Consistency: constant Location: LUQ and LLQ Severity: mild Radiation: none Migration to: no migration Exacerbating factors: movement Relieving factors: nothing Associated Symptoms: Reports no associated symptoms; Denies change in bowel habits, chills, diarrhea, dysuria, fever(s), hematochezia, melena, nausea and vomiting Related Data Home Medications ?Medication ?Instructions ?Recorded ?Confirmed ibuprofen 200 mg tablet 200 mg PO Q6H PRN Pain 06/15/25 09/13/25 ascorbic acid (vitamin C) 500 mg mg PO 08/02/25 09/13/25 capsule insulin glargine 100 unit/mL (3 20 unit SUBCUT BID 08/02/25 09/13/25 mL) subcutaneous pen (Lantus Solostar U-100 Insulin) Held on 08/02/25. Instructions: Doctor's Order insulin lispro 100 unit/mL 20 unit SUBCUT QID 08/02/25 09/13/25 subcutaneous pen (Humalog KwikPen (U-100) Insulin) multivitamin 1 tab PO DAILY 08/02/25 09/13/25 vitamin A palmitate 3,000 mcg 3,000 mcg PO DAILY 08/02/25 09/13/25 (10,000 unit) capsule zinc sulfate 50 mg zinc (220 mg) 50 mg PO DAILY 08/02/25 09/13/25 tablet Previous Rx's ?Medication ?Instructions ?Recorded amlodipine 10 mg tablet 10 mg PO DAILY #30 tabs 08/09/25 blood-glucose sensor (Dexcom G6 #3 ea 08/09/25 Sensor device) bumetanide 0.5 mg tablet 0.5 mg PO DAILY #30 tabs 08/09/25 gabapentin 300 mg capsule 300 mg PO TID #90 caps 08/09/25 lisinopril 20 mg tablet 20 mg PO DAILY #30 tabs 08/09/25 metformin 500 mg tablet,extended 500 mg PO BID #60 tabs 08/09/25 release 24 hr (Glucophage XR) omeprazole magnesium 20 mg 20 mg PO QAM #30 tabs 08/09/25 tablet,delayed release (Prilosec OTC) potassium chloride 20 mEq 20 meq PO DAILY #30 tabs 08/09/25 tablet,extended release(part/cryst) (Klor-Con M) trazodone 100 mg tablet 100 mg PO DAILY #30 tabs 08/09/25 blood-glucose transmitter (Dexcom #1 ea 08/10/25 G6 Transmitter device) blood-glucose,sexual health physician,cont #1 ea 08/10/25 (Dexcom G6 [employer]) levothyroxine 100 mcg capsule 100 mcg PO DAILY #30 caps 08/10/25 atorvastatin 20 mg tablet (Lipitor) 20 mg PO .qhs #30 tabs 08/23/25 moxifloxacin 0.5 % eye drops 1 drp ophthalmic (eye) TID 7 days 08/23/25 (Vigamox) #3 mL oxycodone 10 mg tablet 10 mg PO Q6H PRN pain 7 days #28 09/13/25 tabs Allergies Allergy/AdvReac Type Severity Reaction Status Date / Time No Known Allergies Allergy Verified 09/13/25 13:47 Review of Systems Const: Denies: fever(s), chills, body aches, fatigue or malaise Card: Denies: chest pain Resp: Denies: dyspnea GI: Reports: abdominal pain; Denies: nausea, vomiting, diarrhea, change in bowel habits, hematochezia or melena : Reports: other (reports previous area of fourniers gangrene is healing well); Denies: flank pain, difficulty voiding, dysuria, urinary frequency, urinary urgency, urinary hesitancy or pelvic pain Musc: Denies: back pain Skin/Breast: Denies: rash or erythema Neuro: Denies: headache(s) or dizziness PFSH ED PFSH: Medical History Acquired hypothyroidism Restless legs syndrome Tobacco abuse Primary hypertension Social History Smoking and tobacco/nicotine status: current every day tobacco/nicotine user cigarettes Packs smoked per day: 1 Alcohol intake: current Alcohol intake frequency: holidays/special occasions only Substance/Drug Use: never Additional social history: Not working wants full code as discussed with patient and her significant other Ed Viral on 06/15/2025 by Xavier George MD Household members: significant other Physical Exam Const: COMMON NORMALS: no acute distress, average body habitus, patient oriented x3, no limitations, healthy appearing, alert and well nourished GENERAL APPEARANCE: cooperative ORIENTATION/CONSCIOUSNESS: Yes awake, Yes oriented to person, Yes oriented to place and Yes oriented to time Eye: GENERAL EYE: appearance normal, both eyes and all related structures Resp: COMMON NORMALS: normal respiratory effort and clear to auscultation bilaterally AUSCULTATION: clear to auscultation bilaterally Cardio: COMMON NORMALS: regular rate and regular rhythm RATE: regular rate RHYTHM: regular rhythm GI: COMMON NORMALS: Normal to inspection, nondistended, normoactive bowel sounds present, Soft to palpation, No hepatosplenomegaly present and no masses INSPECTION: Yes normal to inspection AUSCULTATION: Yes normoactive bowel sounds PALPATION: Yes Soft to palpation, Yes Tenderness to palpation present (GI) (mild pain throughout L abdomen ), No Guarding due to palpation present (GI), No Rigid due to palpation and Yes No hepatosplenomegaly present : COMMON NORMALS: Yes no CVA tenderness BLADDER/KIDNEY EXAM: Yes no CVA tenderness GENITAL IMAGES (FEMALE):  1. small residual wound from her surgery back in May-clean/dressed/seems to be healing well Back/Pelvis: COMMON NORMALS: no CVA tenderness Extremity: GENERAL: Yes normal exam except as noted Neuro: COMMON NORMALS: patient oriented x3, moves all extremities, no focal motor deficits, no sensory deficits noted and gait normal SENSORIUM/ORIENTATION: Yes alert, Yes oriented to person, Yes oriented to place and Yes oriented to time Course Vital Signs: Vital signs: Vital Signs Temperature 98.1 F 09/13/25 14:38 Pulse Rate 78 09/13/25 18:39 Respiratory Rate 18 09/13/25 14:38 Blood Pressure 116/66 09/13/25 18:39 Pulse Oximetry 99 09/13/25 18:39 Oxygen Delivery Me thod Room Air 09/13/25 14:38 MDM - Abdominal Pain Medical Decision Making Patient here for left-sided abdominal pain over the past week or so. She states symptoms started after bending over and feels like she may have pulled something. She was reportedly sent here from her primary care office. Vital signs are stable upon arrival. Her blood work overall is nonactionable. UA is currently pending. CT scan had originally been ordered but there was difficulty starting an IV and patient eventually declined CT scan states she would like to go home. She states she will follow-up with primary care or return if symptoms worsen. She will sign AMA. Differential Diagnosis Likely abdominal pain Medical Records I reviewed the patient's medical records. Lab Data I reviewed the patient's lab results. 09/13/25 15:26 09/13/25 15:26 Labs/Radiology: Laboratory Results WBC 12.62 10^3/uL (3.29-11.43) H 09/13/25 15: RBC 5.21 10^6/uL (3.85-5.65) 09/13/25 15:26 Hgb 14.80 g/dL (11.27-16.99) 09/13/25 15: Hct 45.0 % (36-47) 09/13/25 15: MCV 86.4 fl (85-98) 09/13/25 15:26 MCH 28.4 pg (27-33) 09/13/25 15: MCHC 32.9 g/dL (30-55) 09/13/25 15: RDW 13.3 % (12.1-15.1) 09/13/25 15: Plt Count 236 10^3/cmm (157-399) 09/13/25 15: MPV 9.4 fL (7.4-10.4) 09/13/25 15: Neut % (Auto) 57.3 % 09/13/25 15: Lymph % (Auto) 28.8 % 09/13/25 15:26 Sullivan % (Auto) 5.4 % 09/13/25 15:26 Eos % (Auto) 7.6 % 09/13/25 15:26 Baso % (Auto) 0.6 % 09/13/25 15: Neut # (Auto) 7.22 10^3/uL (1.8-7.7) 09/13/25 15: Lymph # (Auto) 3.6 10^3/uL (0.8-4.8) 09/13/25 15:26 Sullivan # (Auto) 0.7 10^3/uL (0.2-0.9) 09/13/25 15: Eos # (Auto) 1.0 10^3/uL (0.0-0.8) H 09/13/25 15: Baso # (Auto) 0.1 10^3/uL (0.0-0.1) 09/13/25 15: Nucleated RBC % (auto) 0 % 09/13/25 15: Nucleated RBCs # 0.0 /100WBC 09/13/25 15:26 Sodium 139 mmol/L (136-145) 09/13/25 15:26 Potassium 3.8 mmol/L (3.5-5.1) 09/13/25 15: Chloride 100 mmol/L (98-107) 09/13/25 15: Carbon Dioxide 24 mmol/L (22-29) 09/13/25 15:26 Anion Gap 18.8 (5-19) 09/13/25 15:26 BUN 14 mg/dL (6-20) 09/13/25 15:26 Creatinine 0.8 mg/dL (0.5-0.9) 09/13/25 15:26 GFR Calculation 73.7 mL/min (90-130) L 09/13/25 15:26 Glucose 124 mg/dL (65-115) H 09/13/25 15:26 Calculated Osmolality 290 mOsm/kg (285-295) 09/13/25 15:26 Lactic Acid 1.7 mmol/L (0.5-2.2) 09/13/25 15:26 Calcium 10.0 mg/dL (8.5-10.5) 09/13/25 15:26 Total Bilirubin 0.2 mg/dL (0.15-1.2) 09/13/25 15:26 AST 27 U/L (0-32) 09/13/25 15:26 ALT 24 U/L (0-33) 09/13/25 15:26 Alkaline Phosphatase 142 U/L (35-105) H 09/13/25 15:26 Total Protein 8.3 g/dL (6.6-8.7) 09/13/25 15:26 Albumin 4.5 g/dL (3.5-5.2) 09/13/25 15:26 Globulin 3.8 g/dL (1.3-4.6) 09/13/25 15:26 Lipase 23 U/L (13-60) 09/13/25 15:26 Amorphous Sediment Not Reportable 09/13/25 18:37 No radiology studies performed this visit Discharge Plan Discharge Patient Disposition: Left Against Medical Advice Clinical Impression: Left sided abdominal pain Condition: Stable Prescriptions: No Action amlodipine 10 mg tablet 10 mg PO DAILY Qty: 30 3RF bumetanide 0.5 mg tablet 0.5 mg PO DAILY Qty: 30 2RF lisinopril 20 mg tablet 20 mg PO DAILY Qty: 30 2RF gabapentin 300 mg capsule 300 mg PO TID Qty: 90 2RF metformin [Glucophage XR] 500 mg tablet extended release 24 hr 500 mg PO BID Qty: 60 2RF omeprazole magnesium [Prilosec OTC] 20 mg tablet,delayed release (DR/EC) 20 mg PO QAM Qty: 30 2RF potassium chloride [Klor-Con M20] 20 mEq tablet,ER particles/crystals 20 meq PO DAILY Qty: 30 2RF trazodone 100 mg tablet 100 mg PO DAILY Qty: 30 2RF (DME) Dexcom G6 Sensor Device See Rx Instructions .Route Qty: 3 5RF Rx Instructions: As directed bacitracin 500 unit/gram packet 1 applic topical ONCE Qty: 1 0RF oxycodone 10 mg tablet 10 mg PO Q6H PRN (Reason: pain) 7 Days Qty: 28 0RF Rx Instructions: Do not fill until 09/15/2025 multivitamin Tablet 1 tab PO DAILY zinc sulfate 50 mg zinc (220 mg) tablet 50 mg PO DAILY insulin lispro [Humalog KwikPen Insulin] 100 unit/mL insulin pen 20 unit SUBCUT QID Patient Comments: per sliding scale vitamin A palmitate 3,000 mcg (10,000 unit) capsule 3,000 mcg PO DAILY insulin glargine [Lantus Solostar U-100 Insulin] 100 unit/mL (3 mL) insulin pen 20 unit SUBCUT BID ascorbic acid (vitamin C) 500 mg capsule PO atorvastatin [Lipitor] 20 mg tablet 20 mg PO .qhs Qty: 30 2RF moxifloxacin [Vigamox] 0.5 % drops 1 drp ophthalmic (eye) TID 7 Days Qty: 3 0RF Rx Instructions: To both eyes (DME) Dexcom G6 [employer] Misc See Rx Instructions .Route Qty: 1 0RF Rx Instructions: As directed (DME) Dexcom G6 Transmitter Device See Rx Instructions .Route Qty: 1 0RF Rx Instructions: As directed levothyroxine 100 mcg capsule 100 mcg PO DAILY Qty: 30 2RF ibuprofen 200 mg Tablet 200 mg PO Q6H PRN (Reason: Pain) Referrals: Mary De Anda DO [Primary Care Provider, Family Practice] Patient Instructions: Abdominal Pain (ED) Print Language: Syriac Coding Level of Care Code 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
[2025-09-13 18:39] VITALS: BP 116/66; PULSE 78; O2SAT 99
[2025-09-13 19:39] LABS: Glucose Urine UA Negative (Normal); Nitrate Urine Negative (Negative); Specific Gravity, Urine 1.023 (1.005-1.030)
== END 2025-09-13 20:16 | disposition left against medical advice (07) ==
PROVIDERS: Emergency Medicine; Emergency Provider Physician Assistant; PCP Family Medicine
DX: Z53.21 Procedure and treatment not carried out due to patient leaving prior to being seen by health care provider (principal); R10.9 Unspecified abdominal pain; Z79.4 Long term (current) use of insulin; F17.210 Nicotine dependence, cigarettes, uncomplicated; I10 Essential (primary) hypertension
CPT/HCPCS: 36415; 80053; 81001; 83605; 83690; 85025; 99283

== ENCOUNTER 2025-09-29 14:17 | Outpatient (CLI) | payer MEDICAID, SELFPAY ==
[2025-09-29] MEDS: iohexol 350 mg/mL 500 mL Btl (per mL) PO (15:08)
--- NOTE | 2025-09-29 15:15 | CT_ITS ---
WS: [id number] CT ABDOMEN AND PELVIS WITH CONTRAST HISTORY: LUQ abd pain TECHNIQUE: Imaging performed of the abdomen and pelvis with IV contrast. Single phase imaging of the abdomen. Coronal and sagittal reformats are submitted. All CT scans at [facility] use at least one of these dose optimization techniques: automated exposure control; mA and/or kV adjustment per patient size (includes targeted exams where dose is matched to clinical indication); or iterative reconstruction. IV CONTRAST: Omnipaque 350; 100 mL IV. Oral contrast: Yes. DLP: 447.36 mGy.cm COMPARISON: 06/15/2025 Lower thorax: Lung bases are clear. Heart is normal size. No hiatal hernia. Liver/biliary system: Normal size with no intrahepatic dilatation. Gallbladder: Status post cholecystectomy. Pancreas: Normal size pancreas and pancreatic duct. No adjacent inflammation. Spleen: Normal size spleen. No mass or infarct. Adrenal glands: Normal. Right kidney: Normal. Left kidney: Normal. Aorta: Mild atherosclerosis with no aneurysm. Lymphadenopathy: None. Free fluid: None. GI tract: No GI tract obstruction. Normal appendix. Mild constipation. Diverticulosis beginning in the splenic flexure and extending through the sigmoid. Mild narrowing of the sigmoid lumen. No acute diverticulitis. Abdominal wall: Unremarkable abdominal wall. No hernia. Pelvis: No free fluid or adenopathy within the pelvis. Nondistended urinary bladder. 0.1 cm calcified mass exophytic from the LEFT uterus is probably a fibroid. There is a separate ovary identified. Postsurgical changes along the anterior pelvis. Bones: Unremarkable. CT/CT abdomen pelvis w con* [id number] IMPRESSION: 1. Prior cholecystectomy. 2. No GI tract obstruction or colitis. 3. Diverticulosis in the descending and sigmoid colon. No acute diverticulitis . 4. Normal appendix. 5. Peripherally calcified 2.0 cm uterine mass likely fibroid.
[2025-09-29] MEDS: iohexol 350 mg/mL 500 mL Btl (per mL) IV (15:37)
== END 2025-09-29 14:18 | disposition home or self-care (01) ==
LOC: RAD 14:18
PROVIDERS: PCP Family Medicine; Visit Provider Family Medicine
DX: R10.12 Left upper quadrant pain (principal); Z90.49 Acquired absence of other specified parts of digestive tract; I70.0 Atherosclerosis of aorta; Z98.890 Other specified postprocedural states; N32.89 Other specified disorders of bladder; K57.30 Diverticulosis of large intestine without perforation or abscess without bleeding
CPT/HCPCS: 74177

== ENCOUNTER → 2025-10-03 15:31 | Outpatient (BNVA) | payer MEDICAID, SELFPAY | PROVIDERS: PCP Family Medicine; Visit Provider Family Medicine | DX: E53.8 Deficiency of other specified B group vitamins (principal); G57.93 Unspecified mononeuropathy of bilateral lower limbs; D50.9 Iron deficiency anemia, unspecified; G25.81 Restless legs syndrome | CPT/HCPCS: 82607; 82728; 83550; 85025 ==